=== PATIENT | male | born 1950 | race Caucasian/White ===

== ENCOUNTER 2018-10-14 22:12 | Inpatient (IN) | payer MEDICARE, SELFPAY ==
[2018-10-14 22:13] VITALS: PULSE 53; RESP 20; TEMP 36.2; O2SAT 98; BMI 34.3
[2018-10-14 22:16] VITALS: BP 192/56; PULSE 54; RESP 18; O2SAT 98
--- NOTE | 2018-10-14 22:17 | RAD_ITS ---
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 paperwork: 1 LINES/DEVICES: None. LUNGS: Radiographically clear. No consolidation, edema or effusion. No pneumothorax. MEDIASTINUM AND CARDIOVASCULAR STRUCTURES: Cardiac silhouette not enlarged. BONES AND SOFT TISSUES: Unremarkable. RAD/Chest 1 View (Portable) IMPRESSION: No radiographic evidence of acute cardiopulmonary disease. at 2256 Reported and signed by: Sandra Chong DO Electronically Signed: Sandra Chong DO at 22:55 EDT Tel , Service support ,
--- NOTE | 2018-10-14 22:17 | EKG12_ITS ---
Test Reason : CP Blood Pressure : / mmHG Vent. Rate : 047 BPM Atrial Rate : 312 BPM P-R Int : 000 ms QRS Dur : 104 ms QT Int : 456 ms P-R-T Axes : 000 088 084 degrees QTc Int : 403 ms Junctional rhythm Incomplete right bundle branch block ST elevation consider inferior injury or acute infarct ACUTE [place] / STEMI Consider right ventricular involvement in acute inferior infarct Abnormal ECG Confirmed by ARLEEN VIRAMONTES, FATOU ([id number]), editor continuity and script COLTEN MOSER ([id number]) on 10/16/2018 1:59:00 PM Referred By: Troy Turner Confirmed By:YEFRI TURNER MD
[2018-10-14] MEDS: TICAGRELOR 90 MG TABLET 180 MG PO (22:23)
[2018-10-14] MEDS: Heparin Injection (Vial) 5,000 UNIT/ML VIAL 4000 UNIT IV (22:24)
[2018-10-14] MEDS: Aspirin 81 MG TAB.CHEW 324 MG PO (22:25)
--- NOTE | 2018-10-14 22:25 | ED.VISSUMM ---
- ER Visit Summary Date of Service: 10/14/18 Chief Complaint: Chest pain History of Present Illness: The patient is a [address] Alberto Garrett and was also a patient of Dr. Hunt. He had a four-vessel bypass 8 years ago. Reports that approximately 4 hours ago he was out mowing the lawn and had the onset of a substernal chest pain. He describes this is a dull pressure. It was 5 out of 10 at worst and 3 out of 10 currently. The pain is been continuous since then. Reports that pain is worsened by exertion relieved by rest. Has been nauseated, but has not vomited. Is very diaphoretic and short of breath with this. Physical Examination: Vitals: 97.2, 192/56, 53, 20, 100% on 2 L nasal cannula. General: Well-nourished and well-developed. Head: Normocephalic atraumatic. Neck: Supple, no lymphadenopathy. No JVD. Nontender. Cardiovascular: Regular rate and rhythm. No murmurs. Respiratory: No respiratory distress. Clear to auscultation bilaterally. Abdominal: Soft, nontender, nondistended, normal bowel sounds. No guarding, rebound, or peritoneal signs. Back: Nontender. Extremities: Nontender, no edema. Skin: Normal color, no rash. Neurologic: Alert and oriented ?3. Cranial nerves II through XII are intact. Normal strength and sensation. Psych: Normal affect. Test Results: EKG is sinus bradycardia at [address] elevation leads II and III and reciprocal changes in 1 aVL. Emergency Department Course and Treatment: The patient had a prehospital EKG that did show elevation in lead 3 and reciprocal changes in 1 and avl. However, aVF and 2 were not as convincing. Because of this a prehospital STEMI was not called. However, patient had an EKG immediately upon arrival and a STEMI was called then. Patient was given aspirin by squad. He was given heparin IV and Brilinta p.o. here. Treatment Plan: Patient was discussed with Dr. Turner. He will be going to the [facility] for further evaluation treatment. Disposition: Admitted in serious condition. Impression: 1. Inferior ST elevation NC. 2. Critical care time 30 minutes. This note was generated with [employer]not[employer] software. It may contain incorrect words, spelling, and punctuation that were not noted in review of the chart prior to signing ED Disposition - Plan for ED Patient:
[2018-10-14 22:28] LABS: Absolute Lymphocyte Count 3.16 X10^3/uL (0.83-4.51); Absolute Neutrophil Count 17.4 X10^3/uL (2.0-7.7); Basophil# 0.13 X10^3/uL; Basophil% 0.6 % (0-1); Eosinophil# 0.08 X10^3/uL; Eosinophils% 0.4 % (0-5); Hematocrit 55.5 % (40-54); Lymphocyte # 3.16 X10^3/ul (4.0); Lymphocyte % 14.3 % (19-41); Mean Corp Hgb Conc 33.2 g/dL (32-36); Mean Corpuscular Hgb 32.7 pg (27.0-32.0); Mean Corpuscular Volume 98.8 fL (80-94); Mean Platelet Vol. 11.9 fl (6.2-12.0); Monocyte# 1.03 X10^3/uL; Monocyte% 4.7 % (0-10); NRBC Flagged by Analyzer 0 % (0-5); Neutrophil # 17.43 X10^3/uL (2.7-7.7); Neutrophil % 78.6 % (47-70); Platelet Count 266 K/mm3 (150-450); RBC Distribution Width CV 12.7 % (11.6-14.6); RBC Distribution Width SD 45.8 fl (35.1-43.9); Red Blood Count 5.62 M/mm3 (4.6-6.2); White Blood Count 22.2 K/mm3 (4.4-11.0)
[2018-10-14 22:33] VITALS: BP 167/61; PULSE 54; RESP 15; O2SAT 98
[2018-10-14 22:33] LABS: POSITIVE COUNT NO; POSITIVE DIFFERENTIAL NO; POSITIVE MORPHOLOGY NO
[2018-10-14 22:35] LABS: Hemoglobin 18.4 g/dL (13.0-16.5)
[2018-10-14 22:36] LABS: Prothrombin Time (Protime)PT. 13.4 SECONDS (11.7-14.9)
[2018-10-14 22:37] LABS: Partial Thromboplast Time 36.2 Seconds (24.1-36.2)
[2018-10-14 22:44] LABS: Anion Gap 12 (5-15); BUN 13 mg/dL (7-18); BUN/Creat Ratio 10.5 RATIO (10-20); Calcium,Total 9.5 mg/dL (8.5-10.1); Chloride 98 mmol/L (98-107); Creatinine, Serum 1.24 mg/dL (0.70-1.30); EST Glomerular Filtration Rate 62 mL/min (>60); Est Glom Filt Rate - Afr Amer 75 mL/min (>60); Estimated Creatinine Clearance 68.13 ml/min; Glucose 419 mg/dL (74-106); Potassium 3.8 mmol/L (3.5-5.1); Sodium Level 135 mmol/L (136-145)
[2018-10-15] VITALS (45 sets, daily range): BP systolic 96–170; BP diastolic 44–107; PULSE 53–79; RESP 12–22; TEMP 36.4–37.1; O2SAT 93–100; BMI 36.9
--- NOTE | 2018-10-15 | EKG12_ITS ---
Test Reason : POST-PCI Blood Pressure : / mmHG Vent. Rate : 058 BPM Atrial Rate : 058 BPM P-R Int : 190 ms QRS Dur : 096 ms QT Int : 440 ms P-R-T Axes : 038 066 038 degrees QTc Int : 431 ms Sinus bradycardia Otherwise normal ECG When compared with ECG of 14-OCT-2018 22:13, MANUAL COMPARISON REQUIRED, DATA IS UNCONFIRMED Confirmed by SAADIA PEREZ ([id number]), order editor KASSI HICKEY ([id number]) on 10/25/2018 3:40:29 PM Referred By: Troy Turner Confirmed By:SAADIA PEREZ
--- NOTE | 2018-10-15 00:27 | CL.I_ITS ---
Patient Name: ELIZABETH ESPINOSA Study Date: 10/14/2018 Performing: Mauricio Turner MD Ht: 74.01 inches 188 cm : 1950 Wt: 266.76 lbs 121 kg Age: 68 Gender: male BSA: 2.46 PROCEDURE(S) PERFORMED LI59-RSH/COR/LV/CABG [id number], ERIN AND/OR PTCA, ARTERY OR GRAFT, SINGLE VESSEL [id number] ROOT ANGIO WITH HEART CATH CLINICAL PROFILE AND CO-MORBIDITIES Indications: ACS <= 24 hrs Heart Failure: None Stress/Imaging Stress/Image Study Performed: No CAD Presentations: STEMI. Symptom onset Date/Time: 10/14/18 18:00:00 Time Estimated CONCLUSIONS CAD as described. Patent 1/4 bypass grafts Preserved EF. No significant or MR. Successful thrombectomy and ERIN to mRCA RECOMMENDATIONS ASA Indefinitley Brilinta for at least 12 months Routine post interventional care Follow up with primary coal gasification technician DESCRIPTION OF PROCEDURE The patient arrived to the procedure lab. The risks and benefits of the procedure as well as a full d escription of our services here and lack of surgical backup were fully explained to the patient and/o r their significant other prior to the catheterization. The Timeout was completed, verifying the deonte ect patient and procedure. The patient's procedural site was prepped and draped in the usual fashion. Local anesthetic was given subcutaneously to right groin region with Lidocaine 2%. Using a modified Seldinger technique, arterial access was obtained via the right femoral artery, a 6Fr sheath was inse rted.. Left Coronary Artery selective angiography was performed in multiple views using a 5 Fr. JL4 catheter. Right Coronary Artery selective angiography was then performed in multiple views using a 5 Fr. JR 4 catheter. Left internal mammary artery graft to the LAD selective angiography was performed in multiple views using a 6 Fr. JR 4 Guide catheter. Left Ventriculography was performed in MORENO projection using a 5 Fr. Pigtail catheter. LV to AO pullback pressures were then recorded. Asc ending (root) aorta selective angiography was then performed in single view. Ascending (root) aorta s elective angiography was then performed in single view JR 4.0 Guide catheter was inserted and engaged into the RCA. BMW Guide wire was advanced to the R CA. Arverne AP inserted Pass # 1 Arverne AP Removed Angiogram performed pre balloon dilatation. Emerge 3.50x20 Balloon catheter was inserted. PTCA balloon inflated at 6 atms for 7 secs. PTCA balloon infla chandler at 6 atms for 12 secs. Angiogram performed post balloon dilatation. Synergy 3.50x38 Drug Eluting stent was inserted. Angiogram performed post stent deployment. NC Emerge3.50x15 Balloon catheter was inserted. PTCA balloon inflated at 20 atms for 21 secs. Angiogram performed post balloon dilatation. The arterial sheath was sutured in place and capped CORONARY ANGIOGRAPHY DOMINANCE: Right Dominant LEFT HEART ASSESSMENT Left Ventricular Ejection Fraction: by LV Gram 60 % Inferior Basal Hypokinesis - Moderate LEFT MAIN: 30 % Stenosis LEFT ANTERIOR DESCENDING ARTERY: MID LAD: 70 % Stenosis CIRCUMFLEX ARTERY: Mild luminal irregularities RIGHT CORONARY ARTERY: MID RCA: 99 % Stenosis GRAFTS: TSE graft to the LAD is patent VALVE FINDINGS: No Aortic Valve Stenosis No Mitral Insufficency AORTIC ROOT: Angiographically normal, no patent bypass grafts seen in the ascending aorta during aortography. INTERVENTION INFORMATION LESION SITE: RCA (Mid) Lesion Complexity: High/C, chronic total occlusion: No, lesion at bifurcation: No, thrombus present: Yes, lesion length: 36 mm, culprit lesion: Yes, Previously treated lesion: No Pre Stenosis: 99 % Pre intervention JEFFERSON flow: 2 PROCEDURE: Thrombectomy, Drug Eluting Stent with pre and post dilatation Post Stenosis: 0 % Post intervention JEFFERSON flow: 3 COMPLICATIONS No Complications PROCEDURE MEDICATIONS Fentanyl 25 mcg IV Oxygen: 2 L/min via nasal cannula Heparin 5000 unit(s) IV 10/14/2018 23:25:21 Nitro 200 mcg IC 10/14/2018 23:35:38 Nitro 200 mcg IC 10/14/2018 23:35:38 IV Bolus: .9 NaCl 1350 ml total 10/15/2018 00:14:46 SUMMARY OF HEMODYNAMIC DATA Time AIR REST ECG 22:49:19 AO 119/57 (99) SA 23:16:17 LV 108/2, 13 23:49:41 LV 112/-2, 11 23:49:48 LVp 106/12, 16 23:50:01 AOp 96/43 (63) 23:50:06 RM AIR REST 00:15:18 Signed By Mauricio Turner MD On 10/15/2018 00:27:15 Mauricio Turner MD
--- NOTE | 2018-10-15 00:30 | NURSING ---
dr santa ordered per verbal that the integrillin drip is to infuse until seen in the am
--- NOTE | 2018-10-15 00:46 | HP.PCM_ITS ---
Problem List (1) STEMI (ST elevation myocardial infarction) Status: Acute (2) DM type 2 (diabetes mellitus, type 2) Status: Acute (3) HTN (hypertension) Status: Chronic (4) HLD (hyperlipidemia) Status: Acute (5) CAD (coronary artery disease) Status: Acute History of Present Illness Date of Admission: 10/15/18 Chief Complaint: Chest pain The patient is a 68 year old M with PMH as below who presents to the ER with chest pain. He states that it started earlier today while mowing the lawn, and he described it as a dull pressure. From the time that it started it has not resolved and he states that he had had a CABG approximately 8 years ago. He does say that the pain gets worse with exertion. In the ER he was found to have sinus bradycardia on his EKG with ST elevations in 2 3 and reciprocal changes in aVL. A STEMI alert was called and he was transferred to the [facility] where he underwent a cardiac catheterization and placement of a single drug-eluting stent in the RCA. He was transferred to the ICU after the procedure on multiple medications. He states that he used to be on a few medications which he has since discontinued for quite a while. Past Medical History Past Medical History (Chronic Problems): Chronic Problems HTN (hypertension) (Chronic) Allergies No Known Allergies Allergy (Verified 10/14/18 22:19) Home Medications: Ambulatory Orders Medication Instructions Recorded NK 10/14/18 Surgical History: appendectomy, - - CABG Smoking Status: Current every day smoker Tobacco Use: Cigarettes Alcohol: None Drugs: None - *Family History Maternal History Items: No pertinent history Paternal History Items: No pertinent history Review of Systems Constitutional: Denies: Chills, Fever, Weight Change HEENT: Denies: Head Aches, Sinus Congestion, Sinus Drainage Cardiovascular: Reports: Chest Pain, Chest Pressure. Denies: Palpitations Respiratory: Reports: Shortness of Breath. Denies: Cough, Shortness of breath at rest, Sputum production Gastrointestinal: Denies: Abdominal Pain, Nausea, Vomiting Genitourinary: Denies: Dysuria Musculoskeletal: Denies: Joint Pain, Joint Tenderness Skin: Denies: Rash, Wounds Neurological: Denies: Numbness, Tingling, Focal weakness Psychiatric: Denies: Anxiety, Depression Hematologic/ Lymphatic: Denies: Easy Bruising, Easy Bleeding VTE Information - Inpt Only VTE Present on Admission: No Patient Problems: Active and Suspected Problems STEMI (ST elevation myocardial infarction) (Acute) DM type 2 (diabetes mellitus, type 2) (Acute) HLD (hyperlipidemia) (Acute) CAD (coronary artery disease) (Acute) - Physical Exam General: Alert, Oriented x3, Cooperative, No apparent distress HEENT: Atraumatic, PERRLA, EOMI, Normocephalic Oral: Moist Mucosa Neck: Supple, No JVD Lungs: Normal air movement, No rhonchi, No rales, Diminished, Wheezes Cardiovascular: Regular rate, Regular Rhythm, Normal S1, Normal S2, No murmurs Abdomen: Soft, Non Tender, Non-Distended, No Hepato-splenomegaly Extremities: No edema, Capillary Refill Less than 3 Seconds Skin: No rashes, No breakdown Neurological: Neuro grossly intact, Sensory exam intact to light touch and pain Psych/Mental Status: Normal Affect, Appropriate Vital Signs Temp Pulse Resp BP Pulse Ox 97.2 F L 60 15 167/61 H 98 10/14/18 22:13 10/15/18 00:20 10/14/18 22:33 10/14/18 22:33 10/14/18 22:33 Oxygen Flow Rate (L/min) 2 Oxygen Delivery Method Nasal Cannula Weight: 257 lb 7.999 oz Body Mass Index (BMI) 36.9 Laboratory Tests Past 24 Hrs 10/14/18 10/14/18 10/14/18 22:15 22:15 22:15 WBC 22.2 H RBC 5.62 Hgb 18.4 H* Hct 55.5 H MCV 98.8 H MCH 32.7 H MCHC 33.2 RDW Std Deviation 45.8 H RDW Coeff of Gala 12.7 Plt Count 266 MPV 11.9 Immature Gran % (Auto) 1.400 H Neut % (Auto) 78.6 H Lymph % (Auto) 14.3 L [place] % (Auto) 4.7 Eos % (Auto) 0.4 Baso % (Auto) 0.6 Absolute Neuts (auto) 17.4 H Absolute Lymphs (auto) 3.16 Absolute Nucleated RBC 0.00 Nucleated RBC % 0 PT 13.4 INR 1.0 APTT 36.2 Sodium 135 L Potassium 3.8 Chloride 98 Carbon Dioxide 25.0 Anion Gap 12 BUN 13 Creatinine 1.24 Estim Creat Clear Calc 68.13 Est GFR (MDRD) Af Amer 75 Est GFR (MDRD) Non-Af 62 BUN/Creatinine Ratio 10.5 Glucose 419 H Calcium 9.5 Troponin I 0.080 H Assessment/Plan All Active Problems STEMI (ST elevation myocardial infarction) (Acute) DM type 2 (diabetes mellitus, type 2) (Acute) HLD (hyperlipidemia) (Acute) CAD (coronary artery disease) (Acute) 1. STEMI/CAD status post CABG/HTN/HLD -Appreciate cardiology input -Post drug-eluting stent to the RCA continue with dual antiplatelets -Given his blood pressure, will continue with metoprolol and Lipitor -We will add a lipid profile this morning labs -Check a BMP in the morning 2. DM 2 -Blood sugar on admission was 419 -We will start with long-acting insulin at 5 units nightly as well as a sliding scale insulin -Accu-Cheks AC at bedtime -We will check an A1c in the morning will likely need to be discharged on metformin 3. Tobacco abuse -Continued to smoke even after his CABG, advised cessation DVT: SCDs Code Visit Inpatient E&M: 65095 Init Hosp L3
[2018-10-15] MEDS: 0.9% NaCl Peripheral Flush Adult/Peds 10 ML IV (01:02)
[2018-10-15 01:16] LABS: Hematocrit 48.8 % (40-54); Hemoglobin 16.1 g/dL (13.0-16.5); Mean Corpuscular Hgb 32.5 pg (27.0-32.0); Mean Corpuscular Volume 98.6 fL (80-94); Mean Platelet Vol. 11.8 fl (6.2-12.0); Platelet Count 203 K/mm3 (150-450); RBC Distribution Width CV 12.8 % (11.6-14.6); RBC Distribution Width SD 46.3 fl (35.1-43.9); Red Blood Count 4.95 M/mm3 (4.6-6.2); White Blood Count 17.9 K/mm3 (4.4-11.0)
[2018-10-15 01:26] LABS: Bedside Glucose 422 mg/dL (70-110)
[2018-10-15] MEDS: 0.9% Normal Saline 1,000 ML 150 ML IV ×2 (01:32→07:41)
[2018-10-15] MEDS: Insulin Lispro 100 UNIT/ML INSULN.PEN SC ×3 (01:33→21:13)
[2018-10-15 04:30] LABS: Hematocrit 46.9 % (40-54); Mean Corp Hgb Conc 34.1 g/dL (32-36); Mean Corpuscular Hgb 33.3 pg (27.0-32.0); Mean Corpuscular Volume 97.7 fL (80-94); Mean Platelet Vol. 11.7 fl (6.2-12.0); Platelet Count 203 K/mm3 (150-450); RBC Distribution Width CV 12.8 % (11.6-14.6); RBC Distribution Width SD 45.9 fl (35.1-43.9); White Blood Count 17.2 K/mm3 (4.4-11.0)
[2018-10-15 04:44] LABS: ALB/GLOB Ratio 0.6 RATIO (0.9-2.4); AST(SGOT) 347 U/L (15-37); Alanine Aminotransfer ALT/SGPT 80 U/L (16-61); Albumin, Serum 2.8 g/dL (3.2-5.0); Alkaline Phosphatase 88 U/L (45-117); Anion Gap 9 (5-15); BUN 13 mg/dL (7-18); BUN/Creat Ratio 12.1 RATIO (10-20); Calcium,Total 8.6 mg/dL (8.5-10.1); Chloride 104 mmol/L (98-107); Cholesterol 164 mg/dL (200); Creatinine, Serum 1.07 mg/dL (0.70-1.30); EST Glomerular Filtration Rate 74 mL/min (>60); Est Glom Filt Rate - Afr Amer 89 mL/min (>60); Estimated Creatinine Clearance 70.12 ml/min; Globulin 4.4 g/dL (2.2-4.2); Glucose 340 mg/dL (74-106); High Density Lipoprotein 29 mg/dL; Potassium 4.6 mmol/L (3.5-5.1); Protein, Total 7.2 g/dL (6.4-8.2); Sodium Level 139 mmol/L (136-145); Triglycerides 208 mg/dL; Very Low Density Lipoprotein 42 mg/dL (5-40)
[2018-10-15 06:45] LABS: Bedside Glucose 290 mg/dL (70-110)
[2018-10-15 06:55] LABS: Hemoglobin A1c 11.1 % (4.2-6.3)
--- NOTE | 2018-10-15 10:00 | EKG12_ITS ---
Test Reason : Blood Pressure : / mmHG Vent. Rate : 062 BPM Atrial Rate : 062 BPM P-R Int : 188 ms QRS Dur : 098 ms QT Int : 432 ms P-R-T Axes : 075 066 052 degrees QTc Int : 438 ms Normal sinus rhythm Nonspecific ST abnormality Abnormal ECG When compared with ECG of 15-OCT-2018 02:41, MANUAL COMPARISON REQUIRED, DATA IS UNCONFIRMED Confirmed by SAADIA PEREZ ([id number]), news videotape editor KASIS HICKEY ([id number]) on 10/25/2018 3:40:44 PM Referred By: Troy Turner Confirmed By:SAADIA PEREZ
--- NOTE | 2018-10-15 10:30 | PCM.PN.BLA ---
Progress Note This is a 68 years old male patient presented to the ED because of chest pain, found to have acute ST elevation MS, underwent emergent cardiac catheterization, found to have 99% stenosis of the mid RCA, status post thrombectomy and placement of drug eluting stent as well as pre-and post dilation. This point, he denies any more chest pain. Denies shortness of breath, dizziness or lightheadedness. Patient history of CABG 8 years ago but he stopped taking his medication 3 years ago. He smokes half a pack a day. He does admit that he had history of hypertension hyperlipidemia. He is not sure if he was told that he has diabetes. In the ED, blood sugar was 419, A1c was 11.1. He is definitely has type 2 diabetes mellitus. Physical examination essentially unremarkable. He is on aspirin, Brilinta, statins, metoprolol. Cardiology on the case.
[2018-10-15] MEDS: TICAGRELOR 90 MG TABLET PO ×2 (10:33→21:12)
[2018-10-15] MEDS: Aspirin E.C. 81 MG Tablet PO (10:33)
[2018-10-15] MEDS: Metoprolol Tartrate 25 MG Tablet PO ×2 (10:33→21:12)
[2018-10-15 12:16] LABS: Bedside Glucose 272 mg/dL (70-110)
[2018-10-15] MEDS: Ondansetron 4 MG/2 ML Vial IV (12:19)
--- NOTE | 2018-10-15 15:13 | CON.PCM_ITS ---
Problem List (1) STEMI (ST elevation myocardial infarction) Status: Acute Reason for Consult Date of Consultation: 10/14/18 History of Present Illness: The patient is a 68 year old M with PMH as below who presents to the ER with chest pain. He states that it started earlier today while mowing the lawn, and he described it as a dull pressure. From the time that it started it has not resolved and he states that he had had a CABG approximately 8 years ago. He vasques s say that the pain gets worse with exertion. In the ER he was found to have sinus bradycardia on his EKG with ST elevations in 2 3 and reciprocal changes in aVL. A STEMI alert was called and he was transferred to the [facility] where he underwent a cardiac catheterization and placement of a single drug-eluting stent in the RCA. He was transferred to the ICU after the procedure on multiple medications. He states that he used to be on a few medications which he has since discontinued for quite a while. [] Review of systems: All systems reviewed. All else is negative except that in the HPI Past Medical History Allergies/Adverse Reactions: Allergies No Known Allergies Allergy (Verified 10/14/18 22:19) Home Medications: Ambulatory Orders Medication Instructions Recorded NK 10/14/18 Past Medical History (Chronic Problems): Chronic Problems Status post coronary artery bypass graft (Chronic) HTN (hypertension) (Chronic) HLD (hyperlipidemia) (Chronic) CAD (coronary artery disease) (Chronic) Surgical History: appendectomy, - - CABG - *Family History Maternal History Items: No pertinent history Paternal History Items: No pertinent history Smoking Status: Current every day smoker Tobacco Use: Cigarettes Alcohol: None Drugs: None Objective: Vital Signs Temp Pulse Resp BP Pulse Ox 98.8 F 71 15 127/44 H 94 10/15/18 12:00 10/15/18 15:00 10/15/18 15:00 10/15/18 15:00 10/15/18 15:00 Oxygen Flow Rate (L/min) 2 Oxygen Delivery Method Room Air Weight: 257 lb 7.999 oz Body Mass Index (BMI) 36.9 Intake and Output for Last 24 Hours 10/13/18 10/14/18 10/15/18 23:59 23:59 23:59 Intake Total 1986 / 1986 Output Total 1500 / 1500 Balance 487 / 487 General: Awake, Alert, Oriented x 3 HEENT: Atraumatic Oral: Moist Mucosa Neck: Supple Lungs: Clear to auscultation Cardiovascular: Normal S1, Normal S2 Abdomen: Soft Extremities: No edema Skin: No Rashes Psych/Mental Status: Appropriate 10/14/18 22:15: WBC 22.2 H, RBC 5.62, Hgb 18.4 H*, Hct 55.5 H, MCV 98.8 H, MCH 32.7 H, MCHC 33.2, Plt Count 266, MPV 11.9, Immature Gran % (Auto) 1.400 H, Neut % (Auto) 78.6 H, Lymph % (Auto) 14.3 L, [place] % (Auto) 4.7, Eos % (Auto) 0.4, Baso % (Auto) 0.6, Absolute Neuts (auto) 17.4 H, Nucleated RBC % 0 10/14/18 22:15: PT 13.4, INR 1.0, APTT 36.2 10/14/18 22:15: Sodium 135 L, Potassium 3.8, Chloride 98, Carbon Dioxide 25.0, Anion Gap 12, BUN 13, Creatinine 1.24, Est GFR (MDRD) Af Amer 75, Est GFR (MDRD) Non-Af 62, BUN/Creatinine Ratio 10.5, Glucose 419 H, Calcium 9.5, Troponin I 0.080 H 10/15/18 00:50: WBC 17.9 H, RBC 4.95, Hgb 16.1, Hct 48.8, MCV 98.6 H, MCH 32.5 H , MCHC 33.0, Plt Count 203, MPV 11.8 10/15/18 04:15: WBC 17.2 H, RBC 4.80, Hgb 16.0, Hct 46.9, MCV 97.7 H, MCH 33.3 H , MCHC 34.1, Plt Count 203, MPV 11.7 10/15/18 04:15: Sodium 139, Potassium 4.6, Chloride 104, Carbon Dioxide 26.0, Anion Gap 9, BUN 13, Creatinine 1.07, Est GFR (MDRD) Af Amer 89, Est GFR (MDRD) Non-Af 74, BUN/Creatinine Ratio 12.1, Glucose 340 H, Calcium 8.6, Total Bilirubin 0.50, Triglycerides 208 H, Cholesterol 164, LDL Cholesterol 93, VLDL Cholesterol 42 H, HDL Cholesterol 29 L 10/15/18 04:15: Hemoglobin A1c 11.1 H Rhythm: EKG: ECHO: Stress Test: Cardiac Cath: PCI: CT Surgery: Holter monitor: EPS: PPM: CXR: Chest CT Scan: Assessment/Plan 1. Inferior ST elevation NM: Patient was treated with thrombectomy and drug- eluting stent to the RCA. Prior to placing the RCA stent the importance of being compliant with medications was discussed with the patient in detail. Drug-eluting stent versus bare-metal stent was discussed. Patient preferred the drug-eluting stent and promised to be compliant with his medications. We will keep the patient on aspirin, Brilinta, metoprolol, Lipitor. Admit to the ICU for further management of his ST elevation NM. 2. Diabetes: Appreciate hospitalists' help with this.
--- NOTE | 2018-10-15 15:44 | PN.CARD_ITS ---
Subjectve: She is doing well. Denies any chest pain. Objective: Vital Signs Temp Pulse Resp BP Pulse Ox 98.8 F 71 15 127/44 H 94 10/15/18 12:00 10/15/18 15:00 10/15/18 15:00 10/15/18 15:00 10/15/18 15:00 Oxygen Flow Rate (L/min) 2 Oxygen Delivery Method Room Air Weight: 257 lb 7.999 oz Body Mass Index (BMI) 36.9 Intake and Output for Last 24 Hours 10/13/18 10/14/18 10/15/18 23:59 23:59 23:59 Intake Total 1986 / 1986 Output Total 1500 / 1500 Balance 487 / 487 General: Awake, Alert, Oriented x 3 HEENT: Atraumatic Oral: Moist Mucosa Neck: Supple Lungs: Clear to auscultation Cardiovascular: Regular Rhythm Abdomen: Soft Extremities: No edema Skin: No Rashes Psych/Mental Status: Appropriate 10/14/18 22:15: WBC 22.2 H, RBC 5.62, Hgb 18.4 H*, Hct 55.5 H, MCV 98.8 H, MCH 32.7 H, MCHC 33.2, Plt Count 266, MPV 11.9, Immature Gran % (Auto) 1.400 H, Neut % (Auto) 78.6 H, Lymph % (Auto) 14.3 L, [place] % (Auto) 4.7, Eos % (Auto) 0.4, Baso % (Auto) 0.6, Absolute Neuts (auto) 17.4 H, Nucleated RBC % 0 10/14/18 22:15: PT 13.4, INR 1.0, APTT 36.2 10/14/18 22:15: Sodium 135 L, Potassium 3.8, Chloride 98, Carbon Dioxide 25.0, Anion Gap 12, BUN 13, Creatinine 1.24, Est GFR (MDRD) Af Amer 75, Est GFR (MDRD) Non-Af 62, BUN/Creatinine Ratio 10.5, Glucose 419 H, Calcium 9.5, Troponin I 0.080 H 10/15/18 00:50: WBC 17.9 H, RBC 4.95, Hgb 16.1, Hct 48.8, MCV 98.6 H, MCH 32.5 H , MCHC 33.0, Plt Count 203, MPV 11.8 10/15/18 04:15: WBC 17.2 H, RBC 4.80, Hgb 16.0, Hct 46.9, MCV 97.7 H, MCH 33.3 H , MCHC 34.1, Plt Count 203, MPV 11.7 10/15/18 04:15: Sodium 139, Potassium 4.6, Chloride 104, Carbon Dioxide 26.0, Anion Gap 9, BUN 13, Creatinine 1.07, Est GFR (MDRD) Af Amer 89, Est GFR (MDRD) Non-Af 74, BUN/Creatinine Ratio 12.1, Glucose 340 H, Calcium 8.6, Total Bilirubin 0.50, Triglycerides 208 H, Cholesterol 164, LDL Cholesterol 93, VLDL Cholesterol 42 H, HDL Cholesterol 29 L 10/15/18 04:15: Hemoglobin A1c 11.1 H Rhythm: EKG: ECHO: Stress Test: Cardiac Cath: PCI: CT Surgery: Holter monitor: EPS: PPM: CXR: Chest CT Scan: Medical Necessity - Tobacco Use Smoking Status: Current every day smoker Tobacco Use: Cigarettes Assessment/Plan 1. Inferior ST elevation IA: Patient was treated with thrombectomy and drug- eluting stent to the RCA. We will continue aspirin, Brilinta, metoprolol, Lipitor. 2. Diabetes: Appreciate hospitalists' help with this. 3. Status post CABG: Patient has 1 out of 4 patent bypass grafts. However he does not need any further revascularization at this time. We will continue medications as above.
[2018-10-15 17:25] LABS: Bedside Glucose 264 mg/dL (70-110)
[2018-10-15] MEDS: Atorvastatin Calcium 40 MG Tablet PO (21:12)
[2018-10-15] MEDS: Nystatin Powder 15gm Bottle 1 APPLIC TOPICAL (21:21)
[2018-10-15 21:37] LABS: Bedside Glucose 258 mg/dL (70-110)
--- NOTE | 2018-10-15 22:05 | NURSING ---
Educated patient on consulting with cab starter. Patient stated, this is neglect, pure neglect of my body and my health. I believe I can manage this at home and if I can't then I will see someone.
[2018-10-16] VITALS (15 sets, daily range): BP systolic 134–150; BP diastolic 38–73; PULSE 48–64; RESP 13–23; TEMP 36.4–37.2; O2SAT 94–99; BMI 36.8
--- NOTE | 2018-10-16 | EKG12_ITS ---
Test Reason : AM EKG Blood Pressure : / mmHG Vent. Rate : 054 BPM Atrial Rate : 054 BPM P-R Int : 194 ms QRS Dur : 098 ms QT Int : 458 ms P-R-T Axes : 077 057 -36 degrees QTc Int : 434 ms Sinus bradycardia with Premature supraventricular complexes T wave abnormality, consider inferior ischemia Abnormal ECG When compared with ECG of 15-OCT-2018 13:35, MANUAL COMPARISON REQUIRED, DATA IS UNCONFIRMED Confirmed by SAADIA PEREZ ([id number]), research editor KASSI HICKEY ([id number]) on 10/25/2018 3:40:56 PM Referred By: Troy Turner Confirmed By:SAADIA PEREZ
[2018-10-16 04:12] LABS: Hemoglobin 15.4 g/dL (13.0-16.5); Mean Corp Hgb Conc 32.8 g/dL (32-36); Mean Corpuscular Volume 100.9 fL (80-94); Mean Platelet Vol. 11.6 fl (6.2-12.0); Platelet Count 199 K/mm3 (150-450); RBC Distribution Width SD 48.3 fl (35.1-43.9); Red Blood Count 4.66 M/mm3 (4.6-6.2); White Blood Count 15.1 K/mm3 (4.4-11.0)
[2018-10-16 06:56] LABS: Bedside Glucose 214 mg/dL (70-110)
[2018-10-16] MEDS: Insulin Lispro 100 UNIT/ML INSULN.PEN SC ×2 (08:23→12:22)
[2018-10-16] MEDS: TICAGRELOR 90 MG TABLET PO (08:23)
[2018-10-16] MEDS: Aspirin E.C. 81 MG Tablet PO (08:23)
[2018-10-16 08:25] LABS: Anion Gap 4 (5-15); BUN 12 mg/dL (7-18); BUN/Creat Ratio 15.1 RATIO (10-20); Calcium,Total 8.6 mg/dL (8.5-10.1); Chloride 108 mmol/L (98-107); Creatinine, Serum 0.79 mg/dL (0.70-1.30); EST Glomerular Filtration Rate 104 mL/min (>60); Est Glom Filt Rate - Afr Amer 126 mL/min (>60); Estimated Creatinine Clearance 75.03 ml/min; Glucose 215 mg/dL (74-106); Magnesium 1.9 mg/dL (1.6-2.6); Phosphorus 2.8 mg/dL (2.5-4.9); Potassium 4.3 mmol/L (3.5-5.1); Sodium Level 138 mmol/L (136-145)
--- NOTE | 2018-10-16 08:32 | CRPHASE1 ---
Patient Communication PHII Cardiac Rehab Discussed with Patient:: Yes Guide to Cardiac Rehab Given to Patient:: Yes Cardiac Rehab Facility Choice List Given to Patient:: Yes - [facility] Choice Program [facility] CR PHII:: Communication Given to CR, Refer to [facility] Refer Phase II Cardiac Rehab:: Yes Sessions:: 36 sessions - 3 days/wk, 12 weeks Phase I Charge:: Level I - Education Risk Factors/Lifestyle Smoking Status: Current every day smoker Hx Diabetes Mellitus Type 2: Yes Hx Dyslipidemia: Yes Hx Obesity: Yes Height: 5 ft 10 in Weight:: 257 lb BMI: 36.8 Risk Factor for Sedentary Lifestyle: Highest Risk Past Cardiac Illness: Coronary Artery Bypass Graft Laboratory Values: Cardiac Rehab Phase I Labs 11.1 % (4.2-6.3) H 10/15/18 04:15 Triglycerides 208 mg/dL (-199) H 10/15/18 04:15 Cholesterol 164 mg/dL (200) 10/15/18 04:15 93 mg/dL (0-130) 10/15/18 04:15 29 mg/dL (40-) L 10/15/18 04:15 Phase I Education Given On:: Artemus, Nutrition, Antiplatelet medication, CHF, Smoking cessation Issues Affecting Care:: None Knowledge of Condition:: Yes Learning Preferences: Verbal, Written, Audio/Visual, Demonstration Medical/Surgical History UT:: Yes - STEMI Angina:: Yes CAD:: Yes Diabetes Type II:: Yes Hypertension:: Yes Dyslipidemia:: Yes CABG: Yes Cardiac Rehabilitation Info Cardiac Rehabilitation Program Information: Cardiac Rehabilitation is important for patients like you who are recovering from a heart problem. Cardiac rehabilitation programs are recognized as integral to the continued care of the patient with coronary heart disease. The cardiac rehabilitation program is designed to optimize a patient's physical, psychological, and social functioning. Health critical care clinical nurse specialist work in cardiac rehabilitation programs and assist you with getting the treatments you need to get stronger and healthier - like exercise, healthy eating habits, and medications. Cardiac rehabilitation has been show to help people with heart problems live longer and have better life enjoyment than people who do not go to cardiac rehabilitation. Please contact the Cardiac Rehabilitation Program at [facility] at in two weeks if you have not heard from them.
[2018-10-16] MEDS: 0.9% NaCl Peripheral Flush Adult/Peds 10 ML IV (08:33)
[2018-10-16] MEDS: Metoprolol Tartrate 25 MG Tablet 12.5 MG PO (08:34)
--- NOTE | 2018-10-16 08:38 | CRPH1.INST_ITS ---
General Education CAD and cardiac anatomy and function:: Patient communicates acknowledgment, Needs reinforcement Explanation of diagnoses and procedures:: Patient communicates acknowledgment, Needs reinforcement Sign/Symptoms of [place]:: Patient communicates acknowledgment, Needs reinforcement Antiplatelet therapy: Patient communicates acknowledgment, Needs reinforcement Proper use of NTG-SL: Patient communicates acknowledgment, Needs reinforcement Emergency procedures and activation of EMS: Patient communicates acknowledgment, Needs reinforcement Compliance of all prescribed medications: Patient communicates acknowledgment, Needs reinforcement Smoking Patient Nicotine/Smoking Risk Factors Are:: Cigarettes Recommendations Include:: Smoking cessation strategies/Smoking packet, Second- hand smoke recommendation, Participation in a smoking cessation program Nicotine/Smoking Response Code:: Patient communicates acknowledgment, Needs reinforcement Dyslipidemia Patient Dyslipidemia Risk Factors Are:: Total Cholesterol, Triglycerides, HDL, LDL Recommendations Include:: Lipid profile provided, Reviewed NCEP/ATP guidelines, Therapeutic Lifestyle Change dietary guidelines Dyslipidemia Response Code:: Patient communicates acknowledgment, Needs reinforcement Overweight/Obesity Patient Overweight/Obesity Risk Factors Are:: Obesity - > or = 30 Recommendations Include:: Weight loss of 5-10%, Reduced calorie diet, Exercise 5-7 times/week Overweight/Obesity:: Patient communicates acknowledgment, Needs reinforcement Hypertension Recommendations Include:: BP <130/80 if diabetic, DASH dietary guidelines, Decrease/maintain normal body weight, Moderation of ETOH Hypertension:: Patient communicates acknowledgment, Needs reinforcement Heart Disease Patient Heart Disease Risk Factors Are:: Previous cardiac event Recommendations Include:: Educated family members of their risk, Educated family members of importance of prevention of heart disease Heart Disease Response Code:: Patient communicates acknowledgment, Needs reinforcement Diabetes Patient Diabetes Risk Factors Are:: Elevated blood sugars Recommendations Include:: Maintain fasting blood sugars 70-110 md/dL, Maintain HgbA1c of 6% or less, Monitor blood sugar as prescribed, Diabetic dietary guidelines, Decrease/maintain body weight Diabetes:: Patient communicates acknowledgment, Needs reinforcement Metabolic Syndrome Metabolic Syndrome Response Code:: Not instructed Sedentary Patient Sedentary Risk Factors Are:: Lack of regular exercise Recommendations Include:: Aerobic exercise 5-7 times/week for 20-30 minutes continuously, Benefits of regular exercise, Discussed home walking program, Monitored Outpatient Cardiac Rehab Sedentary Response Code:: Patient communicates acknowledgment, Needs reinforcement Stress Patient Stress Risk Factors Are:: Patient denies stress as a risk factor Recommendations Include:: Identification of stressors, and assessment of coping skills, Stress management techniques Stress Response Code:: Patient communicates acknowledgment, Needs reinforcement
[2018-10-16 08:40] LABS: Bedside Glucose 218 mg/dL (70-110)
--- NOTE | 2018-10-16 09:06 | CASEMGMT ---
RN CM Assessment Presentation: STEMI Intro role of CM and purpose of RN CM assessment to patient in room. Pt is awake, alert and able to participate in assessment. Demographics, PCP and Pharmacy verified. Pt states he does not have MCR part D and pays out of pocket for all medicaitons. Discussed Brillinta, savings card and [place] assistance program. Will give pt information for for [employer] assistance after physician signs Brillinta script part of form. DENISE Pineda updated that Dr. Turner needs to sign prescription part of form, then please notify CM to come explain form to patient prior to dc. PCP: Dr. Alberto Garrett III Specialists: Dr. Turner Preferred Pharmacy: Discussed options with pt, he is unsure which pharmacy to use. Insurance: [facility] Prescription Benefit: none. Pt may need [facility] Hospital assist on discharge. Brillinta savings card given to patient for 30 day free. If pt uses [facility] Retail pharmacy- will need to send Brillinta savings card down to pharmacy for processing. LNOK: Living Arrangements: Lives independently. Denies use of any DME or needing assistance with ADL's. Transportation: drives, drives DME: none per pt. HHC: none Patient DC goals: Home DC PLAN: Home Chester MARC RN ACM
--- NOTE | 2018-10-16 11:15 | DCINST_ITS ---
- Discharge Diagnoses Current Active Problems: Current Active and Chronic Problems Status post coronary artery bypass graft (Chronic) STEMI (ST elevation myocardial infarction) (Acute) DM type 2 (diabetes mellitus, type 2) (Acute) HTN (hypertension) (Chronic) HLD (hyperlipidemia) (Chronic) CAD (coronary artery disease) (Chronic) You will use the following diet at home:: Calorie/Carbohydrate Controlled (specify 1200, 1400, etc) - 1800 andrew., Cardiac Your food should be the consistency of: Regular Discharge Activity: Return to Normal Activity Weight Bearing Status: Weight bearing as tolerated Call your doctor if you observe: Fever of 101 or Higher, Shortness of breath, Dizziness, Fainting spells, Chest pain, Increased palpitations (irregular heartbeat) Instructions: Heart Attack, Exercising After a Heart Attack, Taking Blood Thinners After Percutaneous Coronary Intervention (PCI), Leaving the Hospital, Hyperglycemia (High Blood Sugar), Hypoglycemia (Low Blood Sugar), Using a Blood Sugar Log, How to Check Your Blood Sugar, What Is Type 2 Diabetes?, Using Injected Insulin Allergies/Adverse Reactions: Allergies No Known Allergies Allergy (Verified 10/14/18 22:19) Medications to take at Discharge Aspirin E.C. [Ecotrin] 81 mg PO DAILY@0800 #90 tablet 10/16/18 Atorvastatin Calcium [Lipitor] 40 mg PO QHS #90 tablet 10/16/18 Insulin Glargine [Lantus SoloStar Pen] 10 units SC QHS #2 pen 10/16/18 Metoprolol Tartrate [Lopressor (beta russell)] 12.5 mg PO BID #90 tablet 10/16/18 Ticagrelor [Brilinta] 90 mg PO BID #90 tablet 10/16/18 The following prescriptions were given: Ticagrelor [Brilinta] 90 mg PO BID #90 tablet Aspirin E.C. [Ecotrin] 81 mg PO DAILY@0800 #90 tablet Insulin Glargine [Lantus SoloStar Pen] 10 units SC QHS #2 pen Atorvastatin Calcium [Lipitor] 40 mg PO QHS #90 tablet Metoprolol Tartrate [Lopressor (beta russell)] 12.5 mg PO BID #90 tablet Orders to be completed after discharge: Glucometer Location: None Selected Please follow up with your Primary Care Physician in: 1-2 weeks. Test Results: Test results from this visit will be discussed in further detail at your follow- up appointment, if applicable. Please Follow Up With: Troy Turner MD When: 2-4 weeks.
[2018-10-16 11:40] LABS: Bedside Glucose 257 mg/dL (70-110)
--- NOTE | 2018-10-16 12:43 | DS.PCM_ITS ---
Discharge Date and Diagnosis - Problem List Patient Problems: Active and Suspected Problems (Last Updated 10/16/18 @ 11:51 by Lorene Antunez) STEMI (ST elevation myocardial infarction) (Acute) DM type 2 (diabetes mellitus, type 2) (Acute) Date of Admission: 10/15/18 Date of Discharge: 10/16/18 - Primary Discharge Diagnosis Active and Suspected Problems (Last Updated 10/16/18 @ 11:51 by Lorene Antunez) #1 acute inferior wall STEMI (ST elevation myocardial infarction) (Acute), status post thrombectomy and drug eluting stent to RCA. #2 newly diagnosed DM type 2 (diabetes mellitus, type 2) (Acute) - Secondary Discharge Diagnosis Chronic Problems (Last Updated 10/16/18 @ 11:51 by Lorene Antunez) Status post coronary artery bypass graft (Chronic) HTN (hypertension) (Chronic) HLD (hyperlipidemia) (Chronic) CAD (coronary artery disease) (Chronic) Hospital Course and Treatment Imaging Results: Clinical Impression(s) from Imaging Studies Chest X-Ray 10/14/18 22:17 IMPRESSION: No radiographic evidence of acute cardiopulmonary disease. at 2256 Reported and signed by: Sandra Chong DO Electronically Signed: Sandra Chong DO at 22:55 EDT Tel , Service support , Dr. Turner, cardiology. Operations: None Procedures: Cardiac catheterization Summary of Care Provided: Patient seen and examined on the day of discharge and appeared to be stable to be discharged home. He denies any more chest pain or shortness of breath. Nursing staff reported that his heart rate has been bradycardic, down to high 40s one time and has been in the 50s to 60s. Other vital signs are stable. The patient is a 68 year old M presented to the emergency room because of chest pain and he was found to have bradycardia on EKG with acute ST elevation in leads II and III and reciprocal changes in lead aVL consistent with inferior wall acute STEMI. Patient had a history of CABG 8 years ago and he stopped taking his medications and following up with his doctor around 3 years ago. He underwent emergent cardiac catheterization, underwent thrombectomy and placement of drug-eluting stent to RCA. He was transferred to ICU and started on medical treatment with aspirin, statins, metoprolol and Brilinta. On admission, patient's blood sugar was 419. Patient mentioned that he is not sure or he does not remember if he had history of diabetes. His hemoglobin A1c was 11.1. He was started on Lantus and sliding scale. He did have leukocytosis on admission which seemed to be reactive and his white blood cell count trended down. He remained afebrile throughout admission. Chest x-ray showed no acute findings. Diabetic education provided. Patient discharged home in a stable medical condition, discharged on aspirin, Brilinta, statins and metoprolol, started on insulin Lantus 10 units nightly, discharge instructions for diabetes, hyperglycemia and hypoglycemia given, recommended to check blood sugar at least once in the morning and 2 hours after each meal, prescription given for glucometer with lancets, alcohol swabs and needles, recommended sleep study as outpatient because patient complained of significant snoring and occasional apnea while asleep, recommended follow-up with PCP in 1 week, follow-up with cardiology in 2-4 weeks. Patient Problems: Active and Suspected Problems (Last Updated 10/16/18 @ 11:51 by Lorene Antunez) STEMI (ST elevation myocardial infarction) (Acute) DM type 2 (diabetes mellitus, type 2) (Acute) - Physical Exam General: Alert, Oriented x3, Cooperative, No apparent distress HEENT: Atraumatic, PERRLA, EOMI, Normocephalic Oral: Moist Mucosa, No Gingival or Mucosal Lesions/ Ulcerations Neck: Supple, No JVD, Negative Carotid Bruits, Trachea Midline, Thyroid Normal Size and Texture Lungs: Clear to auscultation, Normal air movement, No rhonchi, No wheeze, No rales, Diminished Cardiovascular: Regular rate, Regular Rhythm, Normal S1, Normal S2, No murmurs Abdomen: Bowel Sounds Present, Soft, Non Tender, Non-Distended, No Hepato- splenomegaly Extremities: No clubbing, No cyanosis, No edema Skin: No rashes, No breakdown Lymphatic: No Cervical, Supraclavicular, or Inguinal Adenopathy Neurological: Cranial nerves II-XII grossly intact, Neuro grossly intact Psych/Mental Status: Normal Affect, Appropriate, Alert and oriented to time, place, person, mood and affect Vital Signs Temp Pulse Resp BP Pulse Ox 97.6 F L 55 L 16 135/58 H 98 10/16/18 07:00 10/16/18 11:00 10/16/18 11:00 10/16/18 11:00 10/16/18 11:00 Oxygen Flow Rate (L/min) 1 Oxygen Delivery Method Room Air Weight: 257 lb Body Mass Index (BMI) 36.9 Intake and Output for Last 24 Hours 10/14/18 10/15/18 10/16/18 23:59 23:59 23:59 Intake Total 2522.5 / 2522.5 90 / 90 Output Total 2550 / 2550 400 / 400 Balance -27.5 / -27.5 -310 / -310 Laboratory Tests Past 24 Hrs 10/16/18 10/16/18 04:00 04:00 WBC 15.1 H RBC 4.66 Hgb 15.4 Hct 47.0 MCV 100.9 H MCH 33.0 H MCHC 32.8 RDW Std Deviation 48.3 H RDW Coeff of Gala 13.0 Plt Count 199 MPV 11.6 Sodium 138 Potassium 4.3 Chloride 108 H Carbon Dioxide 26.0 Anion Gap 4 L BUN 12 Creatinine 0.79 Estim Creat Clear Calc 75.03 Est GFR (MDRD) Af Amer 126 Est GFR (MDRD) Non-Af 104 BUN/Creatinine Ratio 15.1 Glucose 215 H Calcium 8.6 Phosphorus 2.8 Magnesium 1.9 POC Glucose 10/16/18 10/16/18 10/16/18 11:32 08:19 06:53 POC Glucose 257 H 218 H 214 H 10/15/18 10/15/18 21:09 16:37 POC Glucose 258 H 264 H Discharge Activity: Return to Normal Activity Weight Bearing Status: Weight bearing as tolerated Call your doctor if you observe: Fever of 101 or Higher, Shortness of breath, Dizziness, Fainting spells, Chest pain, Increased palpitations (irregular heartbeat) Home Medications: Medications to take at Discharge Aspirin E.C. [Ecotrin] 81 mg PO DAILY@0800 #90 tab 10/16/18 Atorvastatin Calcium [Lipitor] 40 mg PO QHS #90 tab 10/16/18 Insulin Glargine [Lantus SoloStar Pen] 10 units SUBCUT QHS #2 pen 10/16/18 Metoprolol Tartrate [Lopressor (beta cary)] 12.5 mg PO BID #90 tab 10/16/18 Ticagrelor [Brilinta] 90 mg PO BID #90 tab 10/16/18 Following Prescrptions Were Given to Patient: Ticagrelor [Brilinta] 90 mg PO BID #90 tab Transmission Status: Received by [address] Aspirin E.C. [Ecotrin] 81 mg PO DAILY@0800 #90 tab Transmission Status: Received by [address] Insulin Glargine [Lantus SoloStar Pen] 10 units SUBCUT QHS #2 pen Transmission Status: Received by [address] Atorvastatin Calcium [Lipitor] 40 mg PO QHS #90 tab Transmission Status: Received by [address] Metoprolol Tartrate [Lopressor (beta cary)] 12.5 mg PO BID #90 tab Transmission Status: Received by [address] Other Amb Orders: Glucometer Location: None Selected Primary Care Physician: Alberto Garrett III, MD [Primary Care Provider] - Please follow up with your Primary Care Physician in: 1-2 weeks. Please Follow Up With: Troy Turner MD When: 2-4 weeks. Patient Instructions: Using a Blood Sugar Log, Hyperglycemia (High Blood Sugar), Hypoglycemia (Low Blood Sugar), What Is Type 2 Diabetes?, How to Check Your Blood Sugar, Using Injected Insulin, Heart Attack, Exercising After a Heart Attack, Taking Blood Thinners After Percutaneous Coronary Intervention (PCI), Leaving the Hospital Disposition: Home Minutes spent on discharge:: 32 Patient Condition:: Stable Medical Necessity - Tobacco Use Smoking Status: Current every day smoker Tobacco Use: Cigarettes Meaningful Use Info Meaningful Use Diagnoses (Choose all that apply): AMI - AMI Aspirin given w/in 24hrs of arrival?: Yes ASA at discharge?: Yes Statins at discharge?: Yes Teodoro/ARB at discharge?: No Reason Teodoro/ARB not ordered:: Not indicated Beta Cary at discharge?: Yes Done w/ Acute [place] measure.: Yes Documented LVEF (%): 60 Code Visit Inpatient E&M: 45278 Disch Hosp
--- NOTE | 2018-10-16 13:00 | CASEMGMT ---
RN CM Note: [place] financial assist form filled out and given to patient. Explained areas pt needed to complete at home and requested he bring form and supporting documentation to his cardiology visit to be faxed with script to [employer] for review. Pt was given Brillinta 30 day free card and explained. Script form faxed to [facility] for physician to sign and then fax with pt's paperwork to [place] when he brings in. Chester MARC RN ACM
== END 2018-10-16 15:10 | disposition home or self-care (01) | DRG 247 ==
LOC: ED 22:19 → ICU 23:00
PROVIDERS: Admitting Provider Family Medicine; Emergency Provider Emergency Medicine; Family Provider Family Medicine; PCP Family Medicine; Referring Provider Specialist; Visit Provider Hospitalist
DX: I21.19 ST elevation (STEMI) myocardial infarction involving other coronary artery of inferior wall (principal); I25.10 Atherosclerotic heart disease of native coronary artery without angina pectoris; E11.9 Type 2 diabetes mellitus without complications; E78.5 Hyperlipidemia, unspecified; I10 Essential (primary) hypertension; F17.210 Nicotine dependence, cigarettes, uncomplicated; R00.1 Bradycardia, unspecified; Z95.1 Presence of aortocoronary bypass graft
CPT/HCPCS: 71045; 80048; 80053; 80061; 82962; 83036; 83735; 84100; 84484; 85025; 85027; 85610; 85730; 92941; 93005; 93459; 93567; 97802; 97803; 99152; 99153; 99285; 99406; J7030; J7040; Q9967; A4216; C1725; C1757; C1769; C1874; C1887; C1894; C9606; J1327; J2405

== ENCOUNTER 2023-01-11 16:28 | Inpatient (IN) | payer MEDICARE, SELFPAY ==
[2018-10-16 08:37] VITALS: BMI 36.8
[2023-01-11 16:29] VITALS: PULSE 87; RESP 16; TEMP 36.7; O2SAT 98; BMI 34.7
--- NOTE | 2023-01-11 17:14 | EDS_ITS ---
HPI HPI - GI History of Present Illness Chief Complaint: GI Bleed Informant: patient and spouse/S.O. Narrative Narrative: Patient states he has been having bloody diarrhea since yesterday. He states that started with diarrhea 1 episode that was not bloody, and it started getting bloody after that, and he has had lots of blood with diarrhea stool all day today. No melena prior to this. No abdominal pains but lots of grumbling. Occasional nausea no vomiting no fevers or chills. No known sick contacts. No travel out of the area. No suspicious food intake. His is not having any of this. He takes ticagrelor and aspirin because he had a history of cardiac stents. No anticoagulants. He had a screening colonoscopy for the first time 2 weeks ago, he states they removed over 20 polyps and he received notice that none of them were suspicious for cancer. Some of them had to be banded but he had no significant bleeding until yesterday. PFSH PFSH Medical History Atherosclerosis of coronary artery of [place] heart without angina pectoris Essential hypertension HLD (hyperlipidemia) STEMI (ST elevation myocardial infarction) Type 2 diabetes mellitus without complication Home Medications aspirin 81 mg tablet,delayed release 81 mg PO DAILY@0800 #90 tabs 10/31/18 [Rx Last Taken 01/11/23] ticagrelor 90 mg tablet 90 mg PO BID #90 tabs 10/31/18 [Rx Last Taken Unknown] metoprolol tartrate 25 mg tablet 12.5 mg (1/2 x 25 mg) PO BID #90 tabs 01/14/20 [Rx Last Taken Unknown] atorvastatin 80 mg tablet 80 mg PO QHS 01/11/23 [History Last Taken 01/10/23] clopidogrel 75 mg tablet 75 mg PO DAILY 01/11/23 [History Last Taken 01/11/23] lisinopril 20 mg-hydrochlorothiazide 12.5 mg tablet 1 tab PO DAILY 01/11/23 [History Last Taken 01/11/23] metformin 500 mg tablet 500 mg PO BID 01/11/23 [History Last Taken 01/11/23] pentoxifylline 400 mg tablet,extended release 400 mg PO Q8H improve circulation 01/11/23 [History Last Taken 01/11/23] Allergy/AdvReac Type Severity Reaction Status Date / Time No Known Allergies Allergy Verified 10/31/18 13:41 Surgical History Presence of stent in coronary artery Status post coronary artery bypass graft Social History household members: spouse Smoking Status: Current every day smoker tobacco type: pipe how long ago did patient quit smokin weeks ago quit cigarettes. Still smoking a pipe alcohol intake: never substance use type: does not use caffeine: Yes Type: coffee Number of servings: 1 ROS ROS ED Constitutional Constitutional ED: Denies chills or fever(s) Eyes Eyes: Denies change in vision or diplopia ENT ENT ED: Denies rhinorrhea or sore throat Cardiovascular Cardiovascular: Denies chest pain or palpitations Respiratory/Chest Respiratory/Chest: Denies cough or dyspnea Gastrointestinal Gastrointestinal: Reports diarrhea, hematochezia and nausea; Denies abdominal pain, melena or vomiting Genitourinary Genitourinary ED: Denies dysuria or hematuria Musculoskeletal Musculoskeletal: Denies back pain or neck pain Integumentary Denies abscess or rash Neurologic Neurologic: Denies headache(s), paresthesias or weakness Psychiatric Psychiatric: Denies anxiety or suicidal thoughts EXAM Physical Exam Const Vital Signs: 01/11/23 16:29 01/11/23 19:52 Temperature 98.1 F 98 F Temperature Source Oral Pulse Rate 87 65 Respiratory Rate 16 18 Blood Pressure 117/64 Blood Pressure Mean 81 Pulse Ox 98 99 Oxygen Delivery Method Room Air Positive well nourished, well developed and obese General Appearance ED: well developed and NAD Nutritional Appearance: obese HEENT Reports moist mucous membranes normocephalic and atraumatic Eyes PERRL and EOMs intact bilaterally Neck full ROM and supple Resp normal respiratory effort and clear to auscultation bilaterally Cardio regular rate, regular rhythm and no murmurs Rate: Negative for tachycardic GI non-tender and non-distended GI Narrative: On rectal, no tenderness, no external hemorrhoids. No pooling or active bleeding, just dark trace stool. Auscultation: normoactive bowel sounds Palpation: soft Back/Spine no CVA tenderness General Back: other FROM Extremity normal to inspection General Extremety ED: Negative for edema, pulses abnormal or tenderness General Extremity: Negative for edema or pulses abnormal Neuro oriented x3, CN's II-XII intact bilaterally and no sensory deficits noted Sensorium / Orientation: awake and alert Motor Exam: strength 5/5 throughout Skin no rashes or lesions noted and no wounds MDM MDM MDM Narrative Medical decision making narrative: Patient with a leukocytosis, diarrhea that started before became bloody, he is on antiplatelets because of stents, none of which were placed in the past year. He continued to have multiple episodes of bright red blood per rectum in the emergency department, relatively small amounts. He is hemodynamics are stable, but comparing his blood counts, he is down 5 g but he does not have a recent hemoglobin before today in the past couple years. Given this, I think admitting him is more appropriate. His fecal white blood cell smear returned positive, suggesting infection. I sent empiric bacterial panel that will not be performed tonight. I do not think emergent antibiotics are necessary but I do think admitting him because of the bleeding is indicated. Lab Data Attestation: I reviewed the patient's lab results. Labs: Laboratory Results - last 24 hr 01/11/23 17:20 WBC 16.9 H RBC 3.24 L Hgb 10.3 L Hct 32.8 L MCV 101.2 H MCH 31.8 MCHC 31.4 L RDW Std Deviation 50.2 H RDW Coeff of Gala 13.5 Plt Count 231 MPV 11.6 Immature Gran % (Auto) 1.000 H Neut % (Auto) 79.5 H Lymph % (Auto) 12.3 L [place] % (Auto) 6.6 Eos % (Auto) 0.2 Baso % (Auto) 0.4 Absolute Neuts (auto) 13.4 H Absolute Lymphs (auto) 2.08 Nucleated RBC % 0 Sodium 139 Potassium 4.4 Chloride 109 H Carbon Dioxide 26.0 Anion Gap 4 L BUN 29 H Creatinine 1.12 Estim Creat Clear Calc 63.37 Est GFR (MDRD) Af Amer 83 Est GFR (MDRD) Non-Af 69 BUN/Creatinine Ratio 25.9 H Glucose 129 H Calcium 8.2 L Total Bilirubin 0.30 AST 13 L ALT 23 Alkaline Phosphatase 44 L Total Protein 5.9 L Albumin 2.7 L Globulin 3.2 Albumin/Globulin Ratio 0.8 L Management Discussion w/another healthcare provider: Hospitalist and Director Of Acquisition Marketing (Friend - agreeable w/ above) Discharge Plan Dx/Rx/DC Orders Clinical Impression: Acute blood loss anemia, Hematochezia, Enteritis Disposition Disposition: Acute Care Hospital [facility]
[2023-01-11] MEDS: 0.9% Normal Saline (1000mL) 1,000 ML 999 ML IV (17:20)
[2023-01-11 17:47] LABS: Absolute Lymphocyte Count 2.08 X10^3/uL (0.83-4.51); Absolute Neutrophil Count 13.4 X10^3/uL (2.0-7.7); Basophil# 0.06 X10^3/uL; Basophil% 0.4 % (0-1); Eosinophil# 0.04 X10^3/uL; Eosinophils% 0.2 % (0-5); Hematocrit 32.8 % (40-54); Hemoglobin 10.3 g/dL (13.0-16.5); Lymphocyte # 2.08 X10^3/ul (0.83-4.51); Lymphocyte % 12.3 % (19-41); Mean Corp Hgb Conc 31.4 g/dL (32-36); Mean Corpuscular Hgb 31.8 pg (27.0-32.0); Mean Corpuscular Volume 101.2 fL (80-94); Mean Platelet Vol. 11.6 fl (6.2-12.0); Monocyte# 1.12 X10^3/uL; Monocyte% 6.6 % (0-10); NRBC Flagged by Analyzer 0 % (0-5); Neutrophil # 13.41 X10^3/uL (2.7-7.7); Neutrophil % 79.5 % (47-70); Platelet Count 231 K/mm3 (150-450); RBC Distribution Width CV 13.5 % (11.6-14.6); RBC Distribution Width SD 50.2 fl (35.1-43.9); Red Blood Count 3.24 M/mm3 (4.6-6.2); White Blood Count 16.9 K/mm3 (4.4-11.0)
[2023-01-11 18:11] LABS: ALB/GLOB Ratio 0.8 RATIO (0.9-2.4); AST(SGOT) 13 U/L (15-37); Alanine Aminotransfer ALT/SGPT 23 U/L (16-61); Albumin, Serum 2.7 g/dL (3.2-5.0); Alkaline Phosphatase 44 U/L (45-117); Anion Gap 4 (5-15); BUN 29 mg/dL (7-18); BUN/Creat Ratio 25.9 RATIO (10-20); Calcium,Total 8.2 mg/dL (8.5-10.1); Chloride 109 mmol/L (98-107); Creatinine, Serum 1.12 mg/dL (0.70-1.30); EST Glomerular Filtration Rate 69 mL/min (>60); Est Glom Filt Rate - Afr Amer 83 mL/min (>60); Estimated Creatinine Clearance 63.37 ml/min; Globulin 3.2 g/dL (2.2-4.2); Glucose 129 mg/dL (74-106); Potassium 4.4 mmol/L (3.5-5.1); Protein, Total 5.9 g/dL (6.4-8.2); Sodium Level 139 mmol/L (136-145)
[2023-01-11 19:52] VITALS: BP 117/64; PULSE 65; RESP 18; TEMP 36.6; O2SAT 99
--- NOTE | 2023-01-11 20:22 | PCM.HP.STD ---
HPI - General General Date of Admission: 01/11/23 Date of Service: 01/11/23 Chief Complaint: Bright red blood per rectum HPI Narrative ELIZABETH ESPINOSA, is a 72 M with a significant history of CAD status post solitary stent in 4 to 5 years ago; and who had a colonoscopy on December 27, 2022 presents emergency department with multiple loose bloody stools. His symptoms started the day before presentation. And patient reports that so far he has had about 15 bloody stools up to the time of hospitalist examination at the ED. Also he reports what looks like blood clots in his stool. He denies any nausea, or vomiting. He denies any fever. He denies eating any food out of the ordinary. Patient reports lightheadedness with taking short stairs. Reportedly on December 27, 2022 he had a colonoscopy where about 20 polyps were resected and also he has some banding of some polyps. Reportedly pathology of polyps were negative. Emergency department doctor reports positive occult stools on rectal examination and nothing untoward otherwise. [facility] Medical History (Updated 01/11/23 @ 22:[address] Lit Mosher MD) Atherosclerosis of coronary artery of [place] heart without angina pectoris Essential hypertension HLD (hyperlipidemia) STEMI (ST elevation myocardial infarction) Type 2 diabetes mellitus without complication Home Medications aspirin 81 mg tablet,delayed release 81 mg PO DAILY@0800 #90 tabs 10/31/18 [Rx Last Taken 01/11/23] ticagrelor 90 mg tablet 90 mg PO BID #90 tabs 10/31/18 [Rx Last Taken Unknown] metoprolol tartrate 25 mg tablet 12.5 mg (1/2 x 25 mg) PO BID #90 tabs 01/14/20 [Rx Last Taken 01/11/23] atorvastatin 80 mg tablet 80 mg PO QHS hld 01/11/23 [History Last Taken 01/10/23] clopidogrel 75 mg tablet 75 mg PO DAILY 01/11/23 [History Last Taken 01/11/23] lisinopril 20 mg-hydrochlorothiazide 12.5 mg tablet 1 tab PO DAILY 01/11/23 [History Last Taken 01/11/23] metformin 500 mg tablet 500 mg PO BID 01/11/23 [History Last Taken 01/11/23] pentoxifylline 400 mg tablet,extended release 400 mg PO Q8H improve circulation 01/11/23 [History Last Taken 01/11/23] Allergy/AdvReac Type Severity Reaction Status Date / Time No Known Allergies Allergy Verified 01/11/23 21:41 Family History other other (Patient denies knowledge of family medical history) Surgical History Presence of stent in coronary artery Status post coronary artery bypass graft Social History household members: spouse Smoking Status: Current every day smoker tobacco type: pipe how long ago did patient quit smokin weeks ago quit cigarettes. Still smoking a pipe alcohol intake: never substance use type: does not use caffeine: Yes Type: coffee Number of servings: 1 ROS ROS Narrative Pertinent positives and pertinent negatives as noted in HPI. All other systems were reviewed and are negative Vital Signs Vital Signs Vital Signs: 01/11/23 16:29 01/11/23 19:52 Temperature 98.1 F 98 F Temperature Source Oral Pulse Rate 87 65 Respiratory Rate 16 18 Blood Pressure 117/64 Blood Pressure Mean 81 Pulse Ox 98 99 Oxygen Delivery Method Room Air Weight Weight: 109.6 kg Body Mass Index (BMI) 34.7 Physical Exam Narrative Physical exam: General: Well-nourished, well-developed. Head: Normocephalic, atraumatic, no tenderness Eyes: Vision is grossly intact. EOMI ENT, no trauma, dry mucous membranes, no rhinorrhea Neck: Nontender, No thyromegaly. CVS: Regular rate and rhythm. S1-S2 present. No murmur, gallop or rub. Respiratory : clear to auscultation bilaterally, chest wall nontender Abdomen: Soft, nontender, nondistended, normal bowel sounds, no masses : Deferred Back: Nontender, no CVA tenderness, no midline spinal tenderness, deformities, step-offs Extremities: Nontender full range of motion, no trauma Skin: Normal color, no trauma, abrasions Neuro: Alert, oriented, cranial nerves II through XII grossly intact. Psychiatry: Normal mood. Normal affect. Not depressed. Not anxious. Results Lab / Micro Data 01/11/23 17:20 01/11/23 17:20 Labs: Laboratory Results - last 24 hr 01/11/23 17:20: WBC 16.9 H, RBC 3.24 L, Hgb 10.3 L, Hct 32.8 L, MCV 101.2 H, MCH 31.8, MCHC 31.4 L, RDW Std Deviation 50.2 H, RDW Coeff of Gala 13.5, Plt Count 231, MPV 11.6, Immature Gran % (Auto) 1.000 H, Neut % (Auto) 79.5 H, Lymph % (Auto) 12.3 L, [place] % (Auto) 6.6, Eos % (Auto) 0.2, Baso % (Auto) 0.4, Absolute Neuts (auto) 13.4 H, Absolute Lymphs (auto) 2.08, Nucleated RBC % 0, Sodium 139, Potassium 4.4, Chloride 109 H, Carbon Dioxide 26.0, Anion Gap 4 L, BUN 29 H, Creatinine 1.12, Estim Creat Clear Calc 63.37, Est GFR (MDRD) Af Amer 83, Est GFR (MDRD) Non-Af 69, BUN/Creatinine Ratio 25.9 H, Glucose 129 H, Calcium 8.2 L, Total Bilirubin 0.30, AST 13 L, ALT 23, Alkaline Phosphatase 44 L, Total Protein 5.9 L, Albumin 2.7 L, Globulin 3.2, Albumin/Globulin Ratio 0.8 L Micro: Microbiology 01/11/23 17:55 Stool Stool Lactoferrin - Final Assessment & Plan Assessment/Plan (1) Acute blood loss anemia: (2) Hematochezia: (3) Essential hypertension: (4) Type 2 diabetes mellitus without complication: QUALIFIERS: Diabetes mellitus terminal supervisor insulin use: without [facility] use Qualified Code(s): E11.9 - Type 2 diabetes mellitus without complications PLAN: Plan Acute blood loss anemia His hemoglobin presentation was 10.3. Review of labs shows last hemoglobin on file was on 10/16/2018. At that time his hemoglobin was 15.4. Also his hemoglobin on 10/15/2018 was 16.0. We will trend H&H. Unclear whether lower GI bleed or upper GI bleed especially as patient BUN is elevated. Protonix IV ordered. Hold hold aspirin Plavix and pentoxifylline. GI consult. Of note ED doctor discussed case with GI doctor. Gentle IV hydration. Review of labs showed leukocytosis. However patient has no fever. Will hold off IV antibiotics at this time. Enteropathic panel was obtained in the ED.-Patient could not give enough stool for O&P. O&P ordered at the emergency department. Unlikely C. difficile. Diabetes mellitus Blood glucose is stable Hold home metformin. Check Accu-Cheks with no correction scale insulin. Hypertension Blood pressure is stable Home blood pressure medication continued. Trend blood pressure and adjust blood pressure medications. DVT prophylaxis SCDs ordered. Time spent in the patient's overall evaluation,decision-making process, review of diagnostic data, adjustment of management, discussion with other providers, nursing and ancillary staff involved in patient's care documentation, 65 minutes. Charges/Coding Visit Charges Inpatient E&M: 96517 Init Hosp L3
[2023-01-11 21:32] VITALS: BP 123/58; PULSE 70; RESP 17; TEMP 36.7; O2SAT 100
[2023-01-11 21:33] VITALS: BMI 34.1
[2023-01-11] MEDS: 0.9% Normal Saline (1000mL) 1,000 ML 75 ML IV (21:52)
[2023-01-11] MEDS: Atorvastatin Calcium 80 MG Tablet PO (21:53)
[2023-01-11] MEDS: Pantoprazole Sodium 40 MG in 0.9% Normal Saline (100mL MB+) 100 ML 330 MG IV (21:53)
[2023-01-11 22:28] VITALS: PULSE 64
[2023-01-11 23:36] LABS: Bedside Glucose 106 mg/dL (74-106)
[2023-01-12] VITALS (8 sets, daily range): BP systolic 114–132; BP diastolic 43–55; PULSE 56–68; RESP 17–18; TEMP 36.5–36.8; O2SAT 96–99
[2023-01-12 00:27] LABS: Hematocrit 28.5 % (40-54); Hemoglobin 9.1 g/dL (13.0-16.5)
[2023-01-12 05:50] LABS: Bedside Glucose 111 mg/dL (74-106)
--- NOTE | 2023-01-12 06:00 | EKG12_ITS ---
Test Reason : PRE-OP Blood Pressure : / mmHG Vent. Rate : 062 BPM Atrial Rate : 062 BPM P-R Int : 208 ms QRS Dur : 084 ms QT Int : 432 ms P-R-T Axes : 031 044 040 degrees QTc Int : 438 ms Normal sinus rhythm Normal ECG Confirmed by KYRA VIRAMONTES, SUSAN ([id number]), state editor TULIO HENDRICKS ([id number]) on 01/18/2023 10:24:44 AM Referred By: HIPOLITO Confirmed By:SUSAN RAE MD
[2023-01-12 06:49] LABS: Absolute Lymphocyte Count 2.81 X10^3/uL (0.83-4.51); Absolute Neutrophil Count 8.1 X10^3/uL (2.0-7.7); Basophil# 0.05 X10^3/uL; Basophil% 0.4 % (0-1); Eosinophil# 0.14 X10^3/uL; Eosinophils% 1.2 % (0-5); Hematocrit 27.8 % (40-54); Lymphocyte # 2.81 X10^3/ul (0.83-4.51); Lymphocyte % 23.4 % (19-41); Mean Corp Hgb Conc 32.4 g/dL (32-36); Mean Corpuscular Hgb 32.4 pg (27.0-32.0); Monocyte# 0.85 X10^3/uL; Monocyte% 7.1 % (0-10); NRBC Flagged by Analyzer 0 % (0-5); Neutrophil % 67.3 % (47-70); Platelet Count 193 K/mm3 (150-450); RBC Distribution Width CV 13.3 % (11.6-14.6); RBC Distribution Width SD 48.8 fl (35.1-43.9); Red Blood Count 2.78 M/mm3 (4.6-6.2)
[2023-01-12] MEDS: Pantoprazole Sodium 40 MG in 0.9% Normal Saline (100mL MB+) 100 ML 330 MG IV ×2 (09:00→21:18)
[2023-01-12 09:37] LABS: Hemoglobin A1c 5.8 % (3.8-5.6)
--- NOTE | 2023-01-12 11:27 | PN.HOSP_ITS ---
Subjective Subjective Doing well, no issues overnight. No lightheadedness or dizziness Objective Data Objective Data Vital Signs: Vital Signs Temp Pulse Resp BP Pulse Ox O2 Del Method 97.7 F L 68 18 123/55 H 97 Room Air 01/12/23 08:56 01/12/23 11:00 01/12/23 08:56 01/12/23 08:56 01/12/23 08:56 01/12/23 08:56 Oxygen Delivery Method Room Air Weight: 237 lb 10.533 oz Body Mass Index (BMI) 34.1 Intake & Output: Intake and Output for Last 24 Hours 01/11/23 01/12/23 01/13/23 03:59 03:59 03:59 Intake Total 1170 / 1170 110 / 110 Output Total 900 / 900 Balance 1170 / 1170 -790 / -790 Lab / Micro Data 01/12/23 06:35 01/11/23 17:20 Labs: Laboratory Results - last 24 hr 01/11/23 17:20: WBC 16.9 H, RBC 3.24 L, Hgb 10.3 L, Hct 32.8 L, MCV 101.2 H, MCH 31.8, MCHC 31.4 L, RDW Std Deviation 50.2 H, RDW Coeff of Gala 13.5, Plt Count 231, MPV 11.6, Immature Gran % (Auto) 1.000 H, Neut % (Auto) 79.5 H, Lymph % (Auto) 12.3 L, [place] % (Auto) 6.6, Eos % (Auto) 0.2, Baso % (Auto) 0.4, Absolute Neuts (auto) 13.4 H, Absolute Lymphs (auto) 2.08, Nucleated RBC % 0, Sodium 139, Potassium 4.4, Chloride 109 H, Carbon Dioxide 26.0, Anion Gap 4 L, BUN 29 H, Creatinine 1.12, Estim Creat Clear Calc 63.37, Est GFR (MDRD) Af Amer 83, Est GFR (MDRD) Non-Af 69, BUN/Creatinine Ratio 25.9 H, Glucose 129 H, Calcium 8.2 L, Total Bilirubin 0.30, AST 13 L, ALT 23, Alkaline Phosphatase 44 L, Total Protein 5.9 L, Albumin 2.7 L, Globulin 3.2, Albumin/Globulin Ratio 0.8 L 01/11/23 23:17: POC Glucose 106 01/12/23 00:18: Hgb 9.1 L, Hct 28.5 L 01/12/23 05:28: POC Glucose 111 H 01/12/23 06:35: WBC 12.0 H, RBC 2.78 L, Hgb 9.0 L, Hct 27.8 L, MCV 100.0 H, MCH 32.4 H, MCHC 32.4, RDW Std Deviation 48.8 H, RDW Coeff of Gala 13.3, Plt Count 193, MPV 11.0, Immature Gran % (Auto) 0.600, Neut % (Auto) 67.3, Lymph % (Auto) 23.4, [place] % (Auto) 7.1, Eos % (Auto) 1.2, Baso % (Auto) 0.4, Absolute Neuts (auto) 8.1 H, Absolute Lymphs (auto) 2.81, Nucleated RBC % 0, Hemoglobin A1c 5.8 H Micro: Microbiology 01/11/23 17:55 Stool Stool Lactoferrin - Final 01/11/23 17:55 Stool Enteric Bacteriology - Final Physical Exam Narrative General: Alert, Oriented x3, Cooperative, No apparent distress HEENT: Atraumatic, PERRLA, EOMI, Normocephalic Oral: Moist Mucosa Neck: Supple, No JVD Lungs: Diminished, Normal air movement, No rhonchi, No wheeze, No rales Cardiovascular: Regular rate, Regular Rhythm, Normal S1, Normal S2, No murmurs Abdomen: Soft, Non Tender, Non-Distended, No Hepato-splenomegaly Extremities: No edema, Capillary Refill Less than 3 Seconds Skin: No rashes, No breakdown Musculoskeletal: No Tenderness to Palpation of Joints or Extremities Neurological: Cranial nerves II-XII grossly intact, Motor Exam 5/5 strength throughout, Sensory exam intact to light touch and pain Psych/Mental Status: Normal Affect, Appropriate Assessment & Plan Assessment/Plan (1) Acute blood loss anemia: (2) Hematochezia: (3) Essential hypertension: (4) Type 2 diabetes mellitus without complication: QUALIFIERS: Diabetes mellitus watermelon harvesting supervisor insulin use: without watermelon harvesting supervisor use Qualified Code(s): E11.9 - Type 2 diabetes mellitus without complications PLAN: Plan 1. Acute blood loss anemia secondary to GI bleed ? He had a colonoscopy about 2 to 3 weeks ago up in [place] and says that he had 23 polyps removed it is possible that 1 of those is bleeding as he is on aspirin and Plavix secondary to stents ? Continue with PPI, hemoglobin is down to 9 this morning ? Can hold his antiplatelets ? We will consult GI ? His leukocytosis is improving without any antibiotic interventions therefore we will monitor at this time 2. CAD status post stent/HTN/HLD ? Blood pressures are stable, will monitor and make adjustments to his medications as necessary ? We will need to clarify why he is on Brilinta as well as aspirin and Plavix, in the meantime we will hold all 3 ? Continue with statin 3. DM2 ? We will hold his metformin ? Accu-Cheks ACHS ? We will monitor and make adjustments as necessary DVT: SCDs Charges/Coding Visit Charges Inpatient E&M: 00999 Subs Hosp L2
[2023-01-12] MEDS: 0.9% Normal Saline (1000mL) 1,000 ML 75 ML IV ×2 (11:38→23:19)
[2023-01-12 12:01] LABS: Bedside Glucose 98 mg/dL (74-106)
[2023-01-12 13:08] LABS: Hematocrit 28.3 % (40-54); Hemoglobin 9.2 g/dL (13.0-16.5)
[2023-01-12] MEDS: Electrolyte Solution/Peg's 4000 ML PO (16:02)
--- NOTE | 2023-01-12 16:05 | CASEMGMT ---
DENISE HOWARD Assessment: Face to Face with pt for initial transition planning/care coordination assessment. DENISE HOWARD introduced self and role at [facility], pt voices understanding and consents to assessment. Pt is A&O x4 and answers all questions appropriately at this time. Part way through the assessment, pt's comes into the room. Care providers, pharmacy, and demographics verified/updated. Admitting Dx: ABLA PCP: Padmini Specialists:Fitter Tacker and cutter [employer] [employer] (pt. unsure of the names) [facility]erred [facility]acy[facility] Insurance:[employer] [facility] Prescription Benefit: Pt. states he is unsure LNOK: Haydee Dacosta () Living Will/HCPOA: Pt. states he is unsure if he has either of these and declines to receive info about ADs. Pt. informed he can make an appt. with [facility] to establish these if desired. Living Arrangements: Pt lives with in a 2 story home, not FFSU, 3 steps w/railing to enter, 14 steps w/railing to second floor. States prior to this admission he did have some difficulty ambulating stairs. States he was I in AD[place] and did yardwork. States he does the cooking and cleaning. Transportation: Pt drives self and denies concerns with transportation. States his also drives DME: [employer] (does not use), Declines info for medical alrt system. BP cuff, and glucometer and supplies (states he does not use this). HHC/SNF: Denies any previous HHC or SNF Pt states no concerns with going home at time of dc. states he is no currently on Brilinta as he was switched to Plavix and is also on ASA for his stent. Pt states no further concerns/needs. CM to follow. Advised pt to ask CM if any further question/concerns/needs arise, voices understanding. Pt Goal: Home Plan: Home with family support and follow up plans in place. Will follow and monitor to plan for safe discharge.
--- NOTE | 2023-01-12 17:20 | EX.PCM.CON.G ---
HPI Consult Data Date of Consult: 01/12/23 HPI Narrative Reason for Consultation: GI bleed HPI Narrative: ELIZABETH ESPINOSA, is a 72 man with a significant history of CAD status post solitary stent in 4 to 5 years ago; and who had a colonoscopy on December 27, 2022 presents emergency department with multiple loose bloody stools. His symptoms started the day before presentation. And patient reports that so far he has had about 15 bloody stools up to the time of hospitalist examination at the ED. Also he reports what looks like blood clots in his stool. He denies any nausea, or vomiting. He denies any fever. He denies eating any food out of the ordinary. Patient reports lightheadedness with taking short stairs. Reportedly on December 27, 2022 he had a colonoscopy where about 20 polyps were resected and also he has some banding of some polyps. Reportedly pathology of polyps were negative. Emergency department doctor reports positive occult stools on rectal examination and nothing untoward otherwise. [facility] Medical History Atherosclerosis of coronary artery of [place] heart without angina pectoris Essential hypertension HLD (hyperlipidemia) STEMI (ST elevation myocardial infarction) Type 2 diabetes mellitus without complication Home Medications aspirin 81 mg tablet,delayed release 81 mg PO DAILY@0800 #90 tabs 10/31/18 [Rx Last Taken 01/11/23] ticagrelor 90 mg tablet 90 mg PO BID #90 tabs 10/31/18 [Rx Last Taken Unknown] metoprolol tartrate 25 mg tablet 12.5 mg (1/2 x 25 mg) PO BID #90 tabs 01/14/20 [Rx Last Taken 01/11/23] atorvastatin 80 mg tablet 80 mg PO QHS hld 01/11/23 [History Last Taken 01/10/23] clopidogrel 75 mg tablet 75 mg PO DAILY 01/11/23 [History Last Taken 01/11/23] lisinopril 20 mg-hydrochlorothiazide 12.5 mg tablet 1 tab PO DAILY 01/11/23 [History Last Taken 01/11/23] metformin 500 mg tablet 500 mg PO BID 01/11/23 [History Last Taken 01/11/23] pentoxifylline 400 mg tablet,extended release 400 mg PO Q8H improve circulation 01/11/23 [History Last Taken 10/24/23] Allergy/AdvReac Type Severity Reaction Status Date / Time No Known Allergies Allergy Verified 01/11/23 21:41 Family History other Surgical History Presence of stent in coronary artery Status post coronary artery bypass graft Social History household members: spouse Smoking Status: Current every day smoker tobacco type: pipe how long ago did patient quit smokin weeks ago quit cigarettes. Still smoking a pipe alcohol intake: never substance use type: does not use caffeine: Yes Type: coffee Number of servings: 1 ROS ROS Narrative Pertinent positives and pertinent negatives as noted in HPI. All other systems were reviewed and are negative Physical Exam Narrative General: Alert, Oriented x3, Cooperative, No apparent distress HEENT: Atraumatic, PERRLA, EOMI, Normocephalic Oral: Moist Mucosa Neck: Supple, No JVD Lungs: Diminished, Normal air movement, No rhonchi, No wheeze, No rales Cardiovascular: Regular rate, Regular Rhythm, Normal S1, Normal S2, No murmurs Abdomen: Soft, Non Tender, Non-Distended, No Hepato-splenomegaly Extremities: No edema, Capillary Refill Less than 3 Seconds Skin: No rashes, No breakdown Musculoskeletal: No Tenderness to Palpation of Joints or Extremities Neurological: Cranial nerves II-XII grossly intact, Motor Exam 5/5 strength throughout, Sensory exam intact to light touch and pain Psych/Mental Status: Normal Affect, Appropriate Lab / Micro Data 01/12/23 12:54 01/11/23 17:20 Labs: Laboratory Results - last 24 hr 01/11/23 17:20: WBC 16.9 H, RBC 3.24 L, Hgb 10.3 L, Hct 32.8 L, MCV 101.2 H, MCH 31.8, MCHC 31.4 L, RDW Std Deviation 50.2 H, RDW Coeff of Gala 13.5, Plt Count 231, MPV 11.6, Immature Gran % (Auto) 1.000 H, Neut % (Auto) 79.5 H, Lymph % (Auto) 12.3 L, [place] % (Auto) 6.6, Eos % (Auto) 0.2, Baso % (Auto) 0.4, Absolute Neuts (auto) 13.4 H, Absolute Lymphs (auto) 2.08, Nucleated RBC % 0, Sodium 139, Potassium 4.4, Chloride 109 H, Carbon Dioxide 26.0, Anion Gap 4 L, BUN 29 H, Creatinine 1.12, Estim Creat Clear Calc 63.37, Est GFR (MDRD) Af Amer 83, Est GFR (MDRD) Non-Af 69, BUN/Creatinine Ratio 25.9 H, Glucose 129 H, Calcium 8.2 L, Total Bilirubin 0.30, AST 13 L, ALT 23, Alkaline Phosphatase 44 L, Total Protein 5.9 L, Albumin 2.7 L, Globulin 3.2, Albumin/Globulin Ratio 0.8 L 01/11/23 23:17: POC Glucose 106 01/12/23 00:18: Hgb 9.1 L, Hct 28.5 L 01/12/23 05:28: POC Glucose 111 H 01/12/23 06:35: WBC 12.0 H, RBC 2.78 L, Hgb 9.0 L, Hct 27.8 L, MCV 100.0 H, MCH 32.4 H, MCHC 32.4, RDW Std Deviation 48.8 H, RDW Coeff of Gala 13.3, Plt Count 193, MPV 11.0, Immature Gran % (Auto) 0.600, Neut % (Auto) 67.3, Lymph % (Auto) 23.4, [place] % (Auto) 7.1, Eos % (Auto) 1.2, Baso % (Auto) 0.4, Absolute Neuts (auto) 8.1 H, Absolute Lymphs (auto) 2.81, Nucleated RBC % 0, Hemoglobin A1c 5.8 H 01/12/23 11:37: POC Glucose 98 01/12/23 12:54: Hgb 9.2 L, Hct 28.3 L Micro: Microbiology 01/11/23 17:55 Stool Stool Lactoferrin - Final 01/11/23 17:55 Stool Enteric Bacteriology - Final Assessment & Plan Assessment/Plan (1) Acute blood loss anemia: (2) Hematochezia: (3) Essential hypertension: (4) Type 2 diabetes mellitus without complication: QUALIFIERS: Diabetes mellitus terminal operations supervisor insulin use: without terminal operations supervisor use Qualified Code(s): E11.9 - Type 2 diabetes mellitus without complications PLAN: Plan Acute blood loss anemia His hemoglobin presentation was 10.3. Review of labs shows last hemoglobin on file was on 10/16/2018. At that time his hemoglobin was 15.4. Also his hemoglobin on 10/15/2018 was 16.0. We will trend H&H. Unclear whether lower GI bleed or upper GI bleed especially as patient BUN is elevated. Protonix IV ordered. Hold hold aspirin Plavix and pentoxifylline. We will order an upper and lower endoscopy. Charges/Coding Visit Charges Inpatient E&M: 35974 Init Hosp L3
[2023-01-12 18:00] LABS: Bedside Glucose 98 mg/dL (74-106)
[2023-01-12 18:45] LABS: Hematocrit 31.2 % (40-54); Hemoglobin 10.1 g/dL (13.0-16.5)
[2023-01-12] MEDS: Atorvastatin Calcium 80 MG Tablet PO (21:18)
[2023-01-13] VITALS (14 sets, daily range): BP systolic 124–144; BP diastolic 46–96; PULSE 68–79; RESP 16–18; TEMP 36.4–37.2; O2SAT 95–98
[2023-01-13 00:54] LABS: Bedside Glucose 97 mg/dL (74-106)
[2023-01-13 06:00] LABS: Absolute Lymphocyte Count 2.17 X10^3/uL (0.83-4.51); Absolute Neutrophil Count 5.1 X10^3/uL (2.0-7.7); Basophil# 0.03 X10^3/uL; Basophil% 0.4 % (0-1); Eosinophil# 0.12 X10^3/uL; Eosinophils% 1.5 % (0-5); Hematocrit 25.5 % (40-54); Hemoglobin 8.4 g/dL (13.0-16.5); Lymphocyte # 2.17 X10^3/ul (0.83-4.51); Lymphocyte % 26.8 % (19-41); Mean Corp Hgb Conc 32.9 g/dL (32-36); Mean Corpuscular Hgb 32.6 pg (27.0-32.0); Mean Corpuscular Volume 98.8 fL (80-94); Mean Platelet Vol. 11.4 fl (6.2-12.0); Monocyte# 0.61 X10^3/uL; Monocyte% 7.5 % (0-10); NRBC Flagged by Analyzer 0 % (0-5); Neutrophil # 5.14 X10^3/uL (2.7-7.7); Neutrophil % 63.3 % (47-70); Platelet Count 164 K/mm3 (150-450); RBC Distribution Width CV 13.3 % (11.6-14.6); RBC Distribution Width SD 47.1 fl (35.1-43.9); Red Blood Count 2.58 M/mm3 (4.6-6.2); White Blood Count 8.1 K/mm3 (4.4-11.0)
[2023-01-13 06:04] LABS: Bedside Glucose 112 mg/dL (74-106)
[2023-01-13 06:39] LABS: Anion Gap 4 (5-15); BUN 14 mg/dL (7-18); BUN/Creat Ratio 16.9 RATIO (10-20); Calcium,Total 7.8 mg/dL (8.5-10.1); Chloride 110 mmol/L (98-107); Creatinine, Serum 0.83 mg/dL (0.70-1.30); EST Glomerular Filtration Rate 98 mL/min (>60); Est Glom Filt Rate - Afr Amer 118 mL/min (>60); Estimated Creatinine Clearance 85.51 ml/min; Glucose 122 mg/dL (74-106); Potassium 3.8 mmol/L (3.5-5.1); Sodium Level 140 mmol/L (136-145)
[2023-01-13] MEDS: 0.9% Normal Saline (1000mL) 1,000 ML 15 ML IV (06:49)
--- NOTE | 2023-01-13 07:00 | PN.GI_ITS ---
Subjective Subjective Patient is doing well. He underwent an colonoscopy yesterday for post polypectomy bleed. His hemoglobin had decreased down to 8 but on repeat it went up to 8.7. He is not having any more lower GI bleeding. Objective Data Objective Data Vital Signs: Vital Signs Temp Pulse Resp BP Pulse Ox O2 Del Method 98.8 F 69 18 155/57 H 97 Room Air 01/14/23 09:11 01/14/23 09:11 01/14/23 09:11 01/14/23 09:11 01/14/23 09:11 01/14/23 09:11 Oxygen Delivery Method Room Air Weight: 237 lb 10.533 oz Body Mass Index (BMI) 34.1 Intake & Output: Intake and Output for Last 24 Hours 01/12/23 01/13/23 01/14/23 23:59 23:59 23:59 Intake Total 2071.25 / 2071.25 2729.00 / 2729.00 590 / 590 Output Total 1900 / 1900 Balance 171.25 / 171.25 2729.00 / 2729.00 590 / 590 Lab / Micro Data 01/14/23 12:15 01/14/23 07:15 Labs: Laboratory Results - last 24 hr 01/13/23 22:30: POC Glucose 157 H 01/14/23 05:26: POC Glucose 131 H 01/14/23 07:15: WBC 6.6, RBC 2.47 L, Hgb 8.0 L, Hct 24.9 L, MCV 100.8 H, MCH 32.4 H, MCHC 32.1, RDW Std Deviation 47.9 H, RDW Coeff of Gala 13.3, Plt Count 162, MPV 11.3, Immature Gran % (Auto) 0.500, Neut % (Auto) 66.9, Lymph % (Auto) 22.7, [place] % (Auto) 8.2, Eos % (Auto) 1.4, Baso % (Auto) 0.3, Absolute Neuts (auto) 4.4, Absolute Lymphs (auto) 1.50, Nucleated RBC % 0, Sodium 140, Potassium 3.9, Chloride 110 H, Carbon Dioxide 26.0, Anion Gap 4 L, BUN 12, Creatinine 0.79, Estim Creat Clear Calc 70.97, Est GFR (MDRD) Af Amer 124, Est GFR (MDRD) Non-Af 102, BUN/Creatinine Ratio 15.1, Glucose 133 H, Calcium 7.6 L 01/14/23 12:15: Hgb 8.7 L Micro: Microbiology 01/11/23 17:55 Stool Stool Lactoferrin - Final 01/11/23 17:55 Stool Enteric Bacteriology - Final Physical Exam Narrative General: Alert, Oriented x3, Cooperative, No apparent distress HEENT: Atraumatic, PERRLA, EOMI, Normocephalic Oral: Moist Mucosa Neck: Supple, No JVD Lungs: Diminished, Normal air movement, No rhonchi, No wheeze, No rales Cardiovascular: Regular rate, Regular Rhythm, Normal S1, Normal S2, No murmurs Abdomen: Soft, Non Tender, Non-Distended, No Hepato-splenomegaly Extremities: No edema, Capillary Refill Less than 3 Seconds Skin: No rashes, No breakdown Musculoskeletal: No Tenderness to Palpation of Joints or Extremities Neurological: Cranial nerves II-XII grossly intact, Motor Exam 5/5 strength throughout, Sensory exam intact to light touch and pain Psych/Mental Status: Normal Affect, Appropriate Assessment & Plan Assessment/Plan (1) Acute blood loss anemia: (2) Hematochezia: (3) Essential hypertension: (4) Type 2 diabetes mellitus without complication: QUALIFIERS: Diabetes mellitus detention insulin use: without intermediate project manager use Qualified Code(s): E11.9 - Type 2 diabetes mellitus without complications PLAN: Plan 1. Acute blood loss anemia secondary to GI bleed ? He had a colonoscopy about 2 to 3 weeks ago up in [place] and says that he had 23 polyps removed it is possible that 1 of those is bleeding as he is on aspirin and Plavix secondary to stents ? Continue with PPI, hemoglobin is down to 8.4 this morning ? Can hold his antiplatelets ? Plan for colonoscopy today, given the drop in his hemoglobin we will repeat an H&H this afternoon and then tomorrow morning ? His leukocytosis is improving without any antibiotic interventions therefore we will monitor at this time 2. CAD status post stent/HTN/HLD ? Blood pressures are stable, will monitor and make adjustments to his medications as necessary ? We will need to clarify why he is on Brilinta as well as aspirin and Plavix, in the meantime we will hold all 3 ? Continue with statin 3. DM2 ? We will hold his metformin ? Accu-Cheks ACHS ? We will monitor and make adjustments as necessary DVT: SCDs Charges/Coding Visit Charges Inpatient E&M: 44471 Subs Hosp L3
--- NOTE | 2023-01-13 09:00 | OP.COLON_ITS ---
Patient Name: Walter Dacosta Procedure Date: 01/13/2023 7:25 AM Date of : 1950 Age: 72 Procedure: Colonoscopy Indications: Hematochezia Providers: Hector Gorman DO Medicines: Monitored Anesthesia Care Patient Profile: This is a 72 year old male. Refer to note in patient chart for documentation of history and physical. Last Colonoscopy: 2 weeks ago. Complications: No immediate complications. Procedure: Pre-Anesthesia Assessment: - Prior to the procedure, a History and Physical was performed, and patient medications and allergies were reviewed. The patient is competent. The risks and benefits of the procedure and the sedation options and risks were discussed with the patient. All questions were answered and informed consent was obtained. Patient identification and proposed procedure were verified by the physician in the pre-procedure area. Mental Status Examination: alert and oriented. Airway Examination: normal oropharyngeal airway and neck mobility. Respiratory Examination: clear to auscultation. CV Examination: normal. Prophylactic Antibiotics: The patient does not require prophylactic antibiotics. Prior Anticoagulants: The patient has taken no anticoagulant or antiplatelet agents except for NSAID medication. ASA Grade Assessment: II - A patient with mild systemic disease. After reviewing the risks and benefits, the patient was deemed in satisfactory condition to undergo the procedure. The anesthesia plan was to use monitored anesthesia care (MAC). Immediately prior to administration of medications, the patient was re-assessed for adequacy to receive sedatives. The heart rate, respiratory rate, oxygen saturations, blood pressure, adequacy of pulmonary ventilation, and response to care were monitored throughout the procedure. The physical status of the patient was re-assessed after the procedure. After I obtained informed consent, the scope was passed under direct vision. Throughout the procedure, the patient's blood pressure, pulse, and oxygen saturations were monitored continuously. The colonoscope was introduced through the anus and advanced to the cecum, identified by appendiceal orifice and ileocecal valve. The colonoscopy was performed without difficulty. The patient tolerated the procedure well. The quality of the bowel preparation was fair. Scope In: 7:33:29 AM Scope Withdrawal Time 0 hours 10 minutes 53 seconds Scope Out: 7:51:27 AM Total Procedure Duration Time 0 hours 17 minutes 58 seconds Findings: The perianal and digital rectal examinations were normal. Multiple sessile, non-bleeding polyps were found in the sigmoid colon, descending colon, transverse colon, hepatic flexure, ascending colon and cecum. The polyps were 1 to 2 mm in size. A single (solitary) seven mm ulcer was found at the hepatic flexure. Oozing was present. Stigmata of recent bleeding were present. Area was successfully injected with 5 mL of a 0.1 mg/mL solution of epinephrine for drug delivery. Coagulation for hemostasis using heater probe was successful. Estimated blood loss was minimal. Stool was found in the recto-sigmoid colon, in the sigmoid colon, in the descending colon, in the transverse colon and in the cecum. Multiple small and large-mouthed diverticula were found in the recto-sigmoid colon, sigmoid colon and descending colon. Impression: - Preparation of the colon was fair. - Multiple 1 to 2 mm, non-bleeding polyps in the sigmoid colon, in the descending colon, in the transverse colon, at the hepatic flexure, in the ascending colon and in the cecum. - A single (solitary) ulcer at the hepatic flexure. Injected. Treated with a heater probe. - Stool in the recto-sigmoid colon, in the sigmoid colon, in the descending colon, in the transverse colon and in the cecum. - Diverticulosis in the recto-sigmoid colon, in the sigmoid colon and in the descending colon. - No specimens collected. Recommendation: - Return patient [facility]. - Resume previous diet. - Continue present medications. - Repeat colonoscopy in 6 months because the bowel preparation was suboptimal. Procedure Code(s): --- Professional --- 83074, Colonoscopy, flexible; with control of bleeding, any method 41196, 59, Colonoscopy, flexible; with directed submucosal injection(s), any substance CPT copyright 2021 [employer]. All rights reserved. The codes documented in this report are preliminary and upon dynamiter review may be revised to meet current compliance requirements. Hector Gorman DO 01/13/2023 8:59:52 AM This report has been signed electronically. Number of Addenda: 0 Note Initiated On: 01/13/2023 7:25 AM
--- NOTE | 2023-01-13 09:00 | OP.CCLET_ITS ---
01/13/2023 No Primary Care Physician Re : Colonoscopy procedure for Walter Dacosta [facility] Physician This procedure was performed on December. My impressions and recommendations are as follows: Impressions : - Preparation of the colon was fair. - Multiple 1 to 2 mm, non-bleeding polyps in the sigmoid colon, in the descending colon, in the transverse colon, at the hepatic flexure, in the ascending colon and in the cecum. - A single (solitary) ulcer at the hepatic flexure. Injected. Treated with a heater probe. - Stool in the recto-sigmoid colon, in the sigmoid colon, in the descending colon, in the transverse colon and in the cecum. - Diverticulosis in the recto-sigmoid colon, in the sigmoid colon and in the descending colon. - No specimens collected. Recommendations : - Return patient to [facility] for [facility] care. - Resume previous diet. - Continue present medications. - Repeat colonoscopy in 6 months because the bowel preparation was suboptimal. My findings are described in the full procedure note, which is enclosed. If I can be of further assistance, please feel free to contact me at . Sincerely, Hector Gorman, 01/13/2023 8:59:52 AM This report has been signed electronically.
[2023-01-13] MEDS: Pantoprazole Sodium 40 MG in 0.9% Normal Saline (100mL MB+) 100 ML 330 MG IV ×2 (11:05→22:32)
--- NOTE | 2023-01-13 11:17 | PN.HOSP_ITS ---
Subjective Subjective Doing well, no issues overnight. Hemoglobin did drop to 8.4 Objective Data Objective Data Vital Signs: Vital Signs Temp Pulse Resp BP Pulse Ox O2 Del Method 98.3 F 72 18 134/46 H 98 Room Air 01/13/23 08:39 01/13/23 08:39 01/13/23 08:41 01/13/23 08:39 01/13/23 08:39 01/13/23 08:41 Oxygen Delivery Method Room Air Weight: 237 lb 10.533 oz Body Mass Index (BMI) 34.1 Intake & Output: Intake and Output for Last 24 Hours 01/12/23 01/13/23 01/14/23 03:59 03:59 03:59 Intake Total 1170 / 1170 2071.25 / 2071.25 Output Total 1900 / 1900 Balance 1170 / 1170 171.25 / 171.25 Lab / Micro Data 01/13/23 05:25 01/13/23 05:25 Labs: Laboratory Results - last 24 hr 01/12/23 11:37: POC Glucose 98 01/12/23 12:54: Hgb 9.2 L, Hct 28.3 L 01/12/23 17:39: POC Glucose 98 01/12/23 18:19: Hgb 10.1 L, Hct 31.2 L 01/13/23 00:37: POC Glucose 97 01/13/23 05:25: WBC 8.1, RBC 2.58 L, Hgb 8.4 L, Hct 25.5 L, MCV 98.8 H, MCH 32.6 H, MCHC 32.9, RDW Std Deviation 47.1 H, RDW Coeff of Gala 13.3, Plt Count 164, MPV 11.4, Immature Gran % (Auto) 0.500, Neut % (Auto) 63.3, Lymph % (Auto) 26.8, [place] % (Auto) 7.5, Eos % (Auto) 1.5, Baso % (Auto) 0.4, Absolute Neuts (auto) 5.1, Absolute Lymphs (auto) 2.17, Nucleated RBC % 0, Sodium 140, Potassium 3.8, Chloride 110 H, Carbon Dioxide 26.0, Anion Gap 4 L, BUN 14, Creatinine 0.83, Estim Creat Clear Calc 85.51, Est GFR (MDRD) Af Amer 118, Est GFR (MDRD) Non-Af 98, BUN/Creatinine Ratio 16.9, Glucose 122 H, Calcium 7.8 L 01/13/23 05:46: POC Glucose 112 H Micro: Microbiology 01/11/23 17:55 Stool Stool Lactoferrin - Final 01/11/23 17:55 Stool Enteric Bacteriology - Final Physical Exam Narrative General: Alert, Oriented x3, Cooperative, No apparent distress HEENT: Atraumatic, PERRLA, EOMI, Normocephalic Oral: Moist Mucosa Neck: Supple, No JVD Lungs: Diminished, Normal air movement, No rhonchi, No wheeze, No rales Cardiovascular: Regular rate, Regular Rhythm, Normal S1, Normal S2, No murmurs Abdomen: Soft, Non Tender, Non-Distended, No Hepato-splenomegaly Extremities: No edema, Capillary Refill Less than 3 Seconds Skin: No rashes, No breakdown Musculoskeletal: No Tenderness to Palpation of Joints or Extremities Neurological: Cranial nerves II-XII grossly intact, Motor Exam 5/5 strength throughout, Sensory exam intact to light touch and pain Psych/Mental Status: Normal Affect, Appropriate Assessment & Plan Assessment/Plan (1) Acute blood loss anemia: (2) Hematochezia: (3) Essential hypertension: (4) Type 2 diabetes mellitus without complication: QUALIFIERS: Diabetes mellitus nursing home insulin use: without 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 Acute blood loss anemia secondary to GI bleed ? He had a colonoscopy about 2 to 3 weeks ago up in [place] and says that he had 23 polyps removed it is possible that 1 of those is bleeding as he is on aspirin and Plavix secondary to stents ? Continue with PPI, hemoglobin is down to 8.4 this morning ? Can hold his antiplatelets ? Plan for colonoscopy today, given the drop in his hemoglobin we will repeat an H&H this afternoon and then tomorrow morning ? His leukocytosis is improving without any antibiotic interventions therefore we will monitor at this time 2. CAD status post stent/HTN/HLD ? Blood pressures are stable, will monitor and make adjustments to his me dications as necessary ? We will need to clarify why he is on Brilinta as well as aspirin and Plavix, in the meantime we will hold all 3 ? Continue with statin 3. DM2 ? We will hold his metformin ? Accu-Cheks ACHS ? We will monitor and make adjustments as necessary DVT: SCDs Charges/Coding Visit Charges Inpatient E&M: 19292 Subs Hosp L2
[2023-01-13 12:41] LABS: Hematocrit 27.9 % (40-54); Hemoglobin 8.9 g/dL (13.0-16.5)
[2023-01-13 16:17] LABS: Bedside Glucose 246 mg/dL (74-106)
[2023-01-13 23:34] LABS: Bedside Glucose 157 mg/dL (74-106)
[2023-01-13] MEDS: Atorvastatin Calcium 80 MG Tablet PO (23:43)
[2023-01-14 04:45] VITALS: BP 154/66; PULSE 66; RESP 18; TEMP 36.7; O2SAT 96
[2023-01-14 06:48] LABS: Bedside Glucose 131 mg/dL (74-106)
[2023-01-14 07:47] LABS: Absolute Neutrophil Count 4.4 X10^3/uL (2.0-7.7); Basophil# 0.02 X10^3/uL; Basophil% 0.3 % (0-1); Eosinophil# 0.09 X10^3/uL; Eosinophils% 1.4 % (0-5); Hematocrit 24.9 % (40-54); Lymphocyte % 22.7 % (19-41); Mean Corp Hgb Conc 32.1 g/dL (32-36); Mean Corpuscular Hgb 32.4 pg (27.0-32.0); Mean Corpuscular Volume 100.8 fL (80-94); Mean Platelet Vol. 11.3 fl (6.2-12.0); Monocyte# 0.54 X10^3/uL; Monocyte% 8.2 % (0-10); NRBC Flagged by Analyzer 0 % (0-5); Neutrophil # 4.42 X10^3/uL (2.7-7.7); Neutrophil % 66.9 % (47-70); Platelet Count 162 K/mm3 (150-450); RBC Distribution Width CV 13.3 % (11.6-14.6); RBC Distribution Width SD 47.9 fl (35.1-43.9); Red Blood Count 2.47 M/mm3 (4.6-6.2); White Blood Count 6.6 K/mm3 (4.4-11.0)
[2023-01-14 08:35] VITALS: O2SAT 93
[2023-01-14 08:35] LABS: Anion Gap 4 (5-15); BUN 12 mg/dL (7-18); BUN/Creat Ratio 15.1 RATIO (10-20); Calcium,Total 7.6 mg/dL (8.5-10.1); Chloride 110 mmol/L (98-107); Creatinine, Serum 0.79 mg/dL (0.70-1.30); EST Glomerular Filtration Rate 102 mL/min (>60); Est Glom Filt Rate - Afr Amer 124 mL/min (>60); Estimated Creatinine Clearance 70.97 ml/min; Glucose 133 mg/dL (74-106); Potassium 3.9 mmol/L (3.5-5.1); Sodium Level 140 mmol/L (136-145)
[2023-01-14 09:11] VITALS: BP 155/57; PULSE 69; RESP 18; TEMP 37.1; O2SAT 97
[2023-01-14] MEDS: Pantoprazole Sodium 40 MG in 0.9% Normal Saline (100mL MB+) 100 ML 330 MG IV (09:14)
[2023-01-14] MEDS: terbinafine HCL 250 MG TABLET PO (09:18)
[2023-01-14 12:25] LABS: Hemoglobin 8.7 g/dL (13.0-16.5)
--- NOTE | 2023-01-14 12:52 | DCINST_ITS ---
Discharge Instructions Diet Discharge Diet: Low fat / Low cholesterol and Carb Control Diet Activity Discharge Activity: Return to Normal Activity Dressing / Incision Call your doctor if you observe: Fever of 101 or Higher, Shortness of breath, Dizziness, Fainting spells, Swelling in the ankles, Chest pain and Increased palpitations (irregular heartbeat) Follow Up Care Test Results: Test results from this visit will be discussed in further detail at your follow- up appointment, if applicable. Discharge Plan Admission Admit Date/Time: 01/11/23 20:15 Attending Provider: Otilio Paiz Primary Care Provider: Miracle Rooney,Mel Primary Consulting Providers: Friend,Hector; Lit Mosher Discharge Orders/Prescriptions Prescriptions: Continued atorvastatin 80 mg tablet 80 mg PO QHS Patient Comments: TAKE 1 TABLET BY MOUTH ONCE DAILY. FOR CHOLESTEROL. pentoxifylline 400 mg tablet extended release 400 mg PO Q8H Patient Comments: pt does not always take these. difficulty swallowing. Rx Instructions: TAKE 1 TABLET BY MOUTH THREE TIMES DAILY WITH MEALS lisinopril-hydrochlorothiazide 20-12.5 mg tablet 1 tab PO DAILY Rx Instructions: TAKE 1 TABLET BY MOUTH EVERY DAY IN THE MORNING metformin 500 mg tablet 500 mg PO BID Patient Comments: excessive supply of pills at home, so he hasn't needed refills Rx Instructions: TAKE 1 TABLET BY MOUTH TWICE A DAY WITH MEALS terbinafine HCl 250 mg tablet 250 mg PO DAILY Patient Comments: TAKE 1 TABLET BY MOUTH EVERY DAY metoprolol tartrate 25 mg tablet 12.5 mg PO BID Qty: 90 3RF Held aspirin 81 mg tablet,delayed release (DR/EC) 81 mg PO DAILY@0800 Qty: 90 3RF Hold Instructions: Resume on 01/18/23. clopidogrel 75 mg tablet 75 mg PO DAILY Hold Instructions: Resume on 01/18/23. Patient Comments: TAKE 1 TABLET BY MOUTH EVERY DAY Discontinued ticagrelor 90 mg tablet 90 mg PO BID Qty: 90 3RF Referrals / Follow Up: Care Physician,No Primary [Primary Care Provider] - Disposition Disposition (needs filled in before D/C Order can be placed): Home, Self Care
--- NOTE | 2023-01-14 13:35 | CASEMGMT ---
DENISE CM into pt room, pt sitting up in bed. Pt states he ambulates on own without device. He feels safe to go home. He denies any dc needs. Pt anxious for dc and states the sooner the better.
--- NOTE | 2023-01-14 13:40 | DS.PCM_ITS ---
Providers Date of Admission: 01/11/23 Primary Care Physician: Mel Primary Care Phys Consultations 01/11/23 21:27 Consult: Gastroenterology Routine Consulting Provider: Hector Gorman Reason for Consult: ABLA EMERGENT Consult: No MD Notified: Yes Date Notified: 01/11/23 Time Notified: 20:23 Method of Notification: ED Physician Initiated Reason For Visit: ABLA Diagnosis Discharge Diagnosis (1) Acute blood loss anemia: Status: Acute Code(s): D62 - Acute posthemorrhagic anemia (2) Hematochezia: Status: Acute Code(s): K92.1 - Melena (3) Essential hypertension: Status: Chronic Code(s): I10 - Essential (primary) hypertension (4) Type 2 diabetes mellitus without complication: Status: Acute Code(s): E11.9 - Type 2 diabetes mellitus without complications Qualifiers: Diabetes mellitus 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 Acute blood loss anemia secondary to GI bleed ? He had a colonoscopy about 2 to 3 weeks ago up in [place] and says that he had 23 polyps removed it is possible that 1 of those is bleeding as he is on aspirin and Plavix secondary to stents ? Continue with PPI, hemoglobin is down to 8.4 this morning ? Can hold his antiplatelets ? Plan for colonoscopy today, given the drop in his hemoglobin we will repeat an H&H this afternoon and then tomorrow morning ? His leukocytosis is improving without any antibiotic interventions therefore we will monitor at this time 2. CAD status post stent/HTN/HLD ? Blood pressures are stable, will monitor and make adjustments to his medications as necessary ? We will need to clarify why he is on Brilinta as well as aspirin and Plavix, in the meantime we will hold all 3 ? Continue with statin 3. DM2 ? We will hold his metformin ? Accu-Cheks ACHS ? We will monitor and make adjustments as necessary DVT: SCDs Medications at Discharge Home Medications aspirin 81 mg tablet,delayed release 81 mg PO DAILY@0800 #90 tabs 10/31/18 metoprolol tartrate 25 mg tablet 12.5 mg (1/2 x 25 mg) PO BID #90 tabs 01/14/20 atorvastatin 80 mg tablet 80 mg PO QHS hld 01/11/23 clopidogrel 75 mg tablet 75 mg PO DAILY 01/11/23 lisinopril 20 mg-hydrochlorothiazide 12.5 mg tablet 1 tab PO DAILY 01/11/23 metformin 500 mg tablet 500 mg PO BID 01/11/23 pentoxifylline 400 mg tablet,extended release 400 mg PO Q8H improve circulation 01/11/23 terbinafine HCl 250 mg tablet 250 mg PO DAILY antifungal 01/13/23 Hospital Course Operations None Procedures Colonoscopy Summary of Care Provided Minutes Spent on Discharge: 35 Hospital Course: Per HPI: ELIZABETH ESPINOSA, is a 72 M with a significant history of CAD status post solitary stent in 4 to 5 years ago; and who had a colonoscopy on December 27, 2022 presents emergency department with multiple loose bloody stools. His symptoms started the day before presentation. And patient reports that so far he has had about 15 bloody stools up to the time of hospitalist examination at the ED. Also he reports what looks like blood clots in his stool. He denies any nausea, or vomiting. He denies any fever. He denies eating any food out of the ordinary. Patient reports lightheadedness with taking short stairs. Reportedly on December 27, 2022 he had a colonoscopy where about 20 polyps were resected and also he has some banding of some polyps. Reportedly pathology of polyps were negative. Emergency department doctor reports positive occult stools on rectal examination and nothing untoward otherwise. Hospital Course: 1. Acute blood loss anemia secondary to a lower GI bleed?72-year-old male presented to the hospital with multiple loose bloody stools about 10 to 14 days after he had a colonoscopy where 23 polyps were removed. He does take aspirin as well as Plavix so it was felt that this was likely a lower GI bleed. Gastroenterology was consulted and performed a colonoscopy that showed hepatic flexure ulcer that was treated. It did not appear that any of the sites for his polyps were bleeding. Hemoglobin did stabilize at around 8.7 on the day of discharge. I recommended that he hold his aspirin and his Plavix for another couple of days as its been 7 years since he had his stent placed. Since he was having a lower GI bleed, his Protonix was discontinued on discharge. I discussed with him the plan for discharge today he expressed understanding of the risks and benefits of going home and would like to go home today. 2. Coronary artery disease status post CABG and stent, hypertension, hyperlipid emia, type 2 diabetes are all chronic medical conditions which complicate his care. His home medications were continued where appropriate Physical Exam Narrative General: Alert, Oriented x3, Cooperative, No apparent distress HEENT: Atraumatic, PERRLA, EOMI, Normocephalic Oral: Moist Mucosa Neck: Supple, No JVD Lungs: Diminished, Normal air movement, No rhonchi, No wheeze, No rales Cardiovascular: Regular rate, Regular Rhythm, Normal S1, Normal S2, No murmurs Abdomen: Soft, Non Tender, Non-Distended, No Hepato-splenomegaly Extremities: No edema, Capillary Refill Less than 3 Seconds Skin: No rashes, No breakdown Musculoskeletal: No Tenderness to Palpation of Joints or Extremities Neurological: Cranial nerves II-XII grossly intact, Motor Exam 5/5 strength throughout, Sensory exam intact to light touch and pain Psych/Mental Status: Normal Affect, Appropriate Weight / BMI Weight Weight: 237 lb 10.533 oz Body Mass Index (BMI) 34.1 ABG / Lab / Microbiology Data 01/14/23 12:15 01/14/23 07:15 Laboratory: Laboratory Results - last 24 hr 01/13/23 15:58: POC Glucose 246 H 01/13/23 22:30: POC Glucose 157 H 01/14/23 05:26: POC Glucose 131 H 01/14/23 07:15: WBC 6.6, RBC 2.47 L, Hgb 8.0 L, Hct 24.9 L, MCV 100.8 H, MCH 32.4 H, MCHC 32.1, RDW Std Deviation 47.9 H, RDW Coeff of Gala 13.3, Plt Count 162, MPV 11.3, Immature Gran % (Auto) 0.500, Neut % (Auto) 66.9, Lymph % (Auto) 22.7, [place] % (Auto) 8.2, Eos % (Auto) 1.4, Baso % (Auto) 0.3, Absolute Neuts (auto) 4.4, Absolute Lymphs (auto) 1.50, Nucleated RBC % 0, Sodium 140, Potassium 3.9, Chloride 110 H, Carbon Dioxide 26.0, Anion Gap 4 L, BUN 12, Creatinine 0.79, Estim Creat Clear Calc 70.97, Est GFR (MDRD) Af Amer 124, Est GFR (MDRD) Non-Af 102, BUN/Creatinine Ratio 15.1, Glucose 133 H, Calcium 7.6 L 01/14/23 12:15: Hgb 8.7 L Microbiology: Microbiology 01/11/23 17:55 Stool Stool Lactoferrin - Final 01/11/23 17:55 Stool Enteric Bacteriology - Final D/C Instructions Discharge Diet: Low fat / Low cholesterol and Carb Control Diet Call your doctor if you observe: Fever of 101 or Higher, Shortness of breath, Dizziness, Fainting spells, Swelling in the ankles, Chest pain and Increased palpitations (irregular heartbeat) Meaningful Use Info Meaningful Use Diagnoses (Choose all that apply): None applicable Discharge Plan Admission Admit Date/Time: 01/11/23 20:15 Attending Provider: Otilio Paiz Primary Care Provider: Miracle Rooney,Mel Primary Consulting Providers: Friend,Hector; Lit Mosher Discharge Orders/Prescriptions Prescriptions: Continued atorvastatin 80 mg tablet 80 mg PO QHS Patient Comments: TAKE 1 TABLET BY MOUTH ONCE DAILY. FOR CHOLESTEROL. pentoxifylline 400 mg tablet extended release 400 mg PO Q8H Patient Comments: pt does not always take these. difficulty swallowing. Rx Instructions: TAKE 1 TABLET BY MOUTH THREE TIMES DAILY WITH MEALS lisinopril-hydrochlorothiazide 20-12.5 mg tablet 1 tab PO DAILY Rx Instructions: TAKE 1 TABLET BY MOUTH EVERY DAY IN THE MORNING metformin 500 mg tablet 500 mg PO BID Patient Comments: excessive supply of pills at home, so he hasn't needed refills Rx Instructions: TAKE 1 TABLET BY MOUTH TWICE A DAY WITH MEALS terbinafine HCl 250 mg tablet 250 mg PO DAILY Patient Comments: TAKE 1 TABLET BY MOUTH EVERY DAY metoprolol tartrate 25 mg tablet 12.5 mg PO BID Qty: 90 3RF Held aspirin 81 mg tablet,delayed release (DR/EC) 81 mg PO DAILY@0800 Qty: 90 3RF Hold Instructions: Resume on 01/18/23. clopidogrel 75 mg tablet 75 mg PO DAILY Hold Instructions: Resume on 01/18/23. Patient Comments: TAKE 1 TABLET BY MOUTH EVERY DAY Discontinued ticagrelor 90 mg tablet 90 mg PO BID Qty: 90 3RF Referrals / Follow Up: Care Physician,No Primary [Primary Care Provider] - Disposition Disposition (needs filled in before D/C Order can be placed): Home, Self Care Charges/Coding Visit Charges Inpatient E&M: 01671 Disch Hosp >30min
== END 2023-01-14 15:45 | disposition home or self-care (01) | DRG 394 ==
LOC: ED 19:38 → MS3 20:37
PROVIDERS: Anesthesiology; Internal Medicine Gastroenterology; Admitting Provider Hospitalist; Emergency Provider Emergency Medicine; Visit Provider Family Medicine
PROC: 0DJD8ZZ Inspection of Lower Intestinal Tract, Via Natural or Artificial Opening Endoscopic (ICD-10-PCS; CPT 45378; principal; 2023-01-13 06:55)
DX: K63.3 Ulcer of intestine (principal); D62 Acute posthemorrhagic anemia; K92.2 Gastrointestinal hemorrhage, unspecified; E11.9 Type 2 diabetes mellitus without complications; I10 Essential (primary) hypertension; K57.30 Diverticulosis of large intestine without perforation or abscess without bleeding; I25.10 Atherosclerotic heart disease of native coronary artery without angina pectoris; E78.5 Hyperlipidemia, unspecified; K63.5 Polyp of colon; I25.2 Old myocardial infarction; Z79.82 Long term (current) use of aspirin
CPT/HCPCS: 36415; 80048; 80053; 82962; 83036; 83630; 85014; 85018; 85025; 87177; 87209; 87506; 93005; 99285; 99406; J7030; A4216; J2405

== ENCOUNTER 2023-12-10 02:25 | Emergency (ER) | payer MEDICARE, SELFPAY ==
[2018-10-16 08:37] VITALS: BMI 36.8
[2023-12-10 02:27] VITALS: PULSE 71; RESP 18; TEMP 36.5; O2SAT 94; BMI 33.6
[2023-12-10 02:28] VITALS: BP 168/75; PULSE 71; RESP 16; TEMP 36.5; O2SAT 96
--- NOTE | 2023-12-10 02:31 | EX.ED.DYSGE1 ---
HPI History of Present Illness Chief Complaint: Complaint [facility] Medical History (Updated 12/10/23 @ 04:[address] Eliud Reeves DO) Essential hypertension Type 2 diabetes mellitus without complication Atherosclerosis of coronary artery of [place] heart without angina pectoris HLD (hyperlipidemia) STEMI (ST elevation myocardial infarction) Home Medications ?Medication ?Instructions ?Recorded ?Last Taken ?Type aspirin 81 mg tablet,delayed 81 mg PO DAILY@0800 #90 tabs 10/31/18 01/11/23 Rx release metoprolol tartrate 25 mg tablet 12.5 mg (1/2 x 25 mg) PO BID #90 01/14/20 01/11/23 Rx tabs atorvastatin 80 mg tablet 80 mg PO QHS hld 01/11/23 01/10/23 History clopidogrel 75 mg tablet 75 mg PO DAILY 01/11/23 01/11/23 History lisinopril 20 1 tab PO DAILY 01/11/23 01/11/23 History mg-hydrochlorothiazide 12.5 mg tablet pentoxifylline 400 mg 400 mg PO Q8H improve circulation 01/11/23 01/11/23 History tablet,extended release metformin 1,000 mg tablet 1,000 mg PO BID 12/10/23 Unknown History ondansetron 4 mg disintegrating 4 mg PO Q8H PRN PRN Nausea #10 tabs 12/10/23 Unknown Rx tablet oxycodone 5 mg tablet 5 mg PO Q6H PRN pain 3 days #12 12/10/23 Unknown Rx tabs tamsulosin 0.4 mg capsule (Flomax) 0.4 mg PO DAILY #7 caps 12/10/23 Unknown Rx Allergy/AdvReac Type Severity Reaction Status Date / Time No Known Allergies Allergy Verified 12/10/23 02:29 Surgical History Presence of stent in coronary artery Status post coronary artery bypass graft Social History household members: spouse Smoking Status: Current every day smoker tobacco type: cigarettes and pipe how long ago did patient quit smokin weeks ago quit cigarettes. Still smoking a pipe alcohol intake: never substance use type: does not use caffeine: Yes Type: coffee Number of servings: 1 EXAM Physical Exam Const Vital Signs: 12/10/23 02:27 12/10/23 02:28 12/10/23 03:28 Temperature 97.7 F L 97.7 F L 97.5 F L Temperature Source Oral Oral Oral Pulse Rate 71 71 65 Respiratory Rate 18 16 18 Blood Pressure 168/75 H 163/68 H Blood Pressure Mean 106 99 Pulse Ox 94 96 96 Oxygen Delivery Method Room Air Room Air Room Air 12/10/23 04:00 12/10/23 04:29 Temperature 97.5 F L 97.5 F L Temperature Source Oral Pulse Rate 65 65 Respiratory Rate 18 18 Blood Pressure 163/68 H 163/68 H Blood Pressure Mean 99 99 Pulse Ox 96 96 Oxygen Delivery Method Room Air [facility] Narrative Medical decision making narrative: HISTORY OF PRESENT ILLNESS: 73-year-old male history of hyperlipidemia, STEMI, status post CABG, type 2 diabetes presents per triage note with burning with urination, right flank pain and increased urinary frequency. REVIEW OF SYSTEMS: Pertinent positives: Right flank pain, dysuria Pertinent negatives: vomiting PHYSICAL EXAM: Nursing triage notes reviewed, Vital signs reviewed Constitutional: please see mdm HENT: MMM Eyes: Pupils equal round and reactive to light, Extraocular muscles intact Neck: No stridor, no JVD, full neck ROM Lungs: Clear to auscultation, No wheezing or rales. No increased work of breathing, no conversational dyspnea, no accessory muscle use, no nasal flaring. No respiratory distress noted Heart: Regular rate and rhythm, No murmurs, No rubs and No gallops, 2+ distal pulses (radial, femoral, posterior tibial) in all extremities Abdomen: Soft, there is no tenderness, rigidity, rebound or guarding, no obvious peritoneal signs, no palpable pulsatile abdominal masses, no auscultated abdominal bruit : No CVAT Extremities: No edema Neuro: No focal neurological deficits, cranial nerves II through XII intact, 5/5 strength in all extremities. Intact sensation to light touch in all extremities, 2+ reflexes bilateral patella tendons. Normal gait. No ataxia. Skin: No rash or lesions noted MEDICAL DECISION MAKING: Chief Complaint: Right flank pain, dysuria External records reviewed: Prior imaging reviewed: No recent [place] imaging the abdomen or pelvis. Prior medications reviewed Factors affecting care: As per HPI MDM Narrative: The patient was initially hemodynamically stable, afebrile, nontoxic appearing. Exam without CVA tenderness. I considered the following differential diagnosis: UTI, pyelonephritis, nephrolithiasis, AAA I obtained a broad lab and imaging workup to further elucidate etiology of patient complaints ALL IMAGES (IF OBTAINED) HAVE BEEN PERSONALLY REVIEWED AND INTERPRETED BY MYSELF. CT scan abdomen pelvis was read reviewed myself shows evidence of hydronephrosis and a large nephrolithiasis at the UVJ. Awaiting the radiologist read. CBC with leukocytosis suggestive of systemic inflammation, no anemia or thrombocytopenia noted BMP with out electrolyte abnormalities, noted acute kidney injury, no evidence of metabolic acidosis or endorgan hypoperfusion Urinalysis shows no evidence of urinary inflammation suggestive of UTI After a long shared decision-making discussion in which I offered the patient transfer for immediate urology evaluation versus discharge with Zofran oxycodone Flomax and prompt outpatient urology evaluation patient chose to be discharged to follow-up with urology as an outpatient. He stated he did not want to go to the other facility to with a urologist see him tonight. Encourage increase p.o. intake. Prescribed Flomax, oxycodone and Zofran for symptomatic relief. Strict return precautions were discussed. The patient and/or family, caregivers express understanding. The patient and/or family, caregivers agrees with the plan. Shared decision making: I will have a discussion with the patient and or visitors regarding risk/benefits of further testing or admission. They will be made aware of of the risk/benefits inherent in this decision they will be given the opportunity to voice understanding. Total critical care time today provided was at least 0 minutes. This excludes separately billable procedures. Critical care time (if documented) is secondary to the patient having high probability of clinically significant/life threatening deterioration in the patient's condition which required my urgent intervention. Impression: 1. Leukocytosis 2. DEMI 3. Nephrolithiasis Dispo: Discharge home This note was generated with [employer] dictation software. It may contain incorrect words, spelling, and punctuation that were not noted in review of the chart prior to signing. Lab Data Labs: Laboratory Results - last 24 hr 12/10/23 12/10/23 02:38 03:38 WBC 15.5 H RBC 5.09 Hgb 16.2 Hct 48.6 MCV 95.5 H MCH 31.8 MCHC 33.3 RDW Std Deviation 47.4 H RDW Coeff of Gala 13.4 Plt Count 239 MPV 11.5 Immature Gran % (Auto) 0.500 Neut % (Auto) 79.6 H Lymph % (Auto) 11.2 L [place] % (Auto) 7.9 Eos % (Auto) 0.2 Baso % (Auto) 0.6 Absolute Neuts (auto) 12.3 H Absolute Lymphs (auto) 1.73 Nucleated RBC % 0 Sodium 136 Potassium 4.4 Chloride 105 Carbon Dioxide 22.0 Anion Gap 9 BUN 30 H Creatinine 1.86 H Estim Creat Clear Calc 44.50 Est GFR (MDRD) Af Amer 46 L Est GFR (MDRD) Non-Af 38 L BUN/Creatinine Ratio 16.1 Glucose 127 H Calcium 9.6 Total Bilirubin 0.60 AST 20 ALT 31 Alkaline Phosphatase 56 Total Protein 7.9 Albumin 3.6 Globulin 4.3 H Albumin/Globulin Ratio 0.8 L Urine Color Yellow Urine Clarity Clear Urine pH 5.0 Ur Specific [place] 1.020 Urine Protein 30 H Urine Glucose (UA) Normal Urine Ketones Negative Urine Occult Blood 250 H Urine Nitrite Negative Urine Bilirubin Negative Urine Urobilinogen Normal Ur Leukocyte Esterase Negative Urine RBC 5-10 SEEN Urine WBC 0 SEEN Ur Squamous Epith Cells 0-5 SEEN Urine Bacteria 0 SEEN Urine Mucus 0 SEEN Discharge Plan Triage Chief Complaint: Complaint ED Provider: Eliud Reeves Dx/Rx/DC Orders Clinical Impression: Nephrolithiasis Instructions: Preventing Kidney Stones, ED Kidney Stone with Pain Prescriptions: New tamsulosin [Flomax] 0.4 mg capsule 0.4 mg PO DAILY Qty: 7 0RF ondansetron 4 mg tablet,disintegrating 4 mg PO Q8H PRN PRN (Reason: Nausea) Qty: 10 0RF oxycodone 5 mg tablet 5 mg PO Q6H PRN (Reason: pain) 3 Days Qty: 12 0RF No Action aspirin 81 mg tablet,delayed release (DR/EC) 81 mg PO DAILY@0800 Qty: 90 3RF atorvastatin 80 mg tablet 80 mg PO QHS Patient Comments: TAKE 1 TABLET BY MOUTH ONCE DAILY. FOR CHOLESTEROL. clopidogrel 75 mg tablet 75 mg PO DAILY Patient Comments: TAKE 1 TABLET BY MOUTH EVERY DAY pentoxifylline 400 mg tablet extended release 400 mg PO Q8H Patient Comments: pt does not always take these. difficulty swallowing. Rx Instructions: TAKE 1 TABLET BY MOUTH THREE TIMES DAILY WITH MEALS lisinopril-hydrochlorothiazide 20-12.5 mg tablet 1 tab PO DAILY Rx Instructions: TAKE 1 TABLET BY MOUTH EVERY DAY IN THE MORNING metformin 1,000 mg tablet 1,000 mg PO BID metoprolol tartrate 25 mg tablet 12.5 mg PO BID Qty: 90 3RF Primary Care Provider: Kevin Washington Referrals: Reece Gaines MD [Med Staff - Active Staff] - Activity Restrictions/Additional Instructions: Thank you for trusting us with your care today! You were diagnosed with a large kidney stone. Kidney stones less than 5 mm to 8 mm typically pass on their own. Your kidney stone was 10 mm Please take Tylenol (2 pills, 650 mg), ibuprofen (2 pills, 400 mg) every 6 hours as needed for pain and fever control. Please take oxycodone as needed for breakthrough pain at the above regimen does not control your pain. Please take Zofran as needed for nausea and vomiting. You are also prescribed a medication called Flomax which is thought to improve passage of the kidney stone please take this as well for neck 7 days Please return to the emergency department if your symptoms change or worsen. Specifically develop severe pain that is not controlled by the above regimen, you develop vomiting that controlled by Zofran, develop fever chills or feel ill. Please follow with Urology (Dr. Gaines) for further outpatient evaluation and management. Print Language: Norwegian Disposition Disposition: Home, Self Care
--- NOTE | 2023-12-10 02:32 | CT_ITS ---
INDICATION: RT FLANK PAIN EXAMINATION: CT ABDOMEN AND PELVIS WITHOUT CONTRAST - CT Abdomen And Pelvis W/O Contrast Injection TECHNIQUE: Helically acquired images were obtained of the abdomen and pelvis without oral or IV contrast. A radiation dose optimization technique was used for this scan. IV Contrast dosage and agent: None. Oral contrast: None. RADIATION DOSAGE (If Supplied By Facility): CTDIvol = ( 18.56 ) mGy, DLP = ( 1043.40 ) mGycm COMPARISON: No relevant prior comparison study available FINDINGS: LOWER CHEST: Lung bases are clear. No cardiomegaly or pericardial effusion. Coronary artery calcifications are seen. LIVER: The liver is normal in size, shape, and attenuation. No focal mass. GALLBLADDER AND BILIARY TREE: The gallbladder is normally distended. No gallstones. No gallbladder wall thickening or edema. No intra- or extrahepatic biliary ductal dilation. PANCREAS: No focal cystic or solid mass. SPLEEN: Normal size without focal cystic or solid mass. ADRENAL GLANDS: Bilateral thickening of the adrenal glands. There is a left lipid rich adenoma measuring 2.2 cm. KIDNEYS AND URETERS: Normal renal size and position. Simple left renal cyst. No specific follow-up recommended. Mild right hydroureteronephrosis. There is a 1 cm calculus at the right ureterovesicular junction. This measures 1113 Hounsfield units. At least 3 additional right-sided calculi. The largest is seen at the lower pole measuring 0.7 cm, 14 cm from the posterior axillary line. At least 3 left renal calculi. The largest is at the upper pole measuring 1 cm, 12 cm from the posterior axillary line. PERITONEUM: No ascites or free air. No other fluid collection. BOWEL: The stomach is unremarkable. Normal caliber small bowel. No obstruction. No colonic wall thickening or inflammatory changes. Colonic diverticulosis noted without diverticulitis. No evidence of acute appendicitis. LYMPH NODES: No enlarged mesenteric or retroperitoneal lymph nodes. VESSELS: Aorta is non-dilated. Moderate atherosclerotic calcifications. URINARY BLADDER: Partially distended with mild circumferential wall thickening. REPRODUCTIVE ORGANS: No pelvic masses. ABDOMINAL WALL: No discrete abdominal or pelvic wall hernia. BONES: No acute or suspicious osseous abnormality. Mild degenerative changes of the spine. CT/Abdomen/Pelvis without Cont IMPRESSION: Mild right hydroureteronephrosis with a 1 cm calculus at the right ureterovesicular junction. Additional bilateral nonobstructing renal calculi. Lipid rich left adrenal adenoma. No specific follow-up recommended. Electronically Signed: Jake Shea MD at 3:58 EDT ,
[2023-12-10] MEDS: 0.9% Normal Saline (1000mL) 1,000 ML 999 ML IV (02:37)
[2023-12-10] MEDS: Ketorolac 15 MG/ML Vial IV (02:38)
[2023-12-10 02:56] LABS: Absolute Lymphocyte Count 1.73 X10^3/uL (0.83-4.51); Absolute Neutrophil Count 12.3 X10^3/uL (2.0-7.7); Basophil% 0.6 % (0-1); Eosinophil# 0.03 X10^3/uL; Eosinophils% 0.2 % (0-5); Hematocrit 48.6 % (40-54); Hemoglobin 16.2 g/dL (13.0-16.5); Lymphocyte # 1.73 X10^3/ul (0.83-4.51); Lymphocyte % 11.2 % (19-41); Mean Corp Hgb Conc 33.3 g/dL (32-36); Mean Corpuscular Hgb 31.8 pg (27.0-32.0); Mean Corpuscular Volume 95.5 fL (80-94); Mean Platelet Vol. 11.5 fl (6.2-12.0); Monocyte# 1.22 X10^3/uL; Monocyte% 7.9 % (0-10); NRBC Flagged by Analyzer 0 % (0-5); Neutrophil # 12.29 X10^3/uL (2.7-7.7); Neutrophil % 79.6 % (47-70); Platelet Count 239 K/mm3 (150-450); RBC Distribution Width CV 13.4 % (11.6-14.6); RBC Distribution Width SD 47.4 fl (35.1-43.9); Red Blood Count 5.09 M/mm3 (4.6-6.2); White Blood Count 15.5 K/mm3 (4.4-11.0)
[2023-12-10 03:13] LABS: ALB/GLOB Ratio 0.8 RATIO (0.9-2.4); AST(SGOT) 20 U/L (15-37); Alanine Aminotransfer ALT/SGPT 31 U/L (16-61); Albumin, Serum 3.6 g/dL (3.2-5.0); Alkaline Phosphatase 56 U/L (45-117); Anion Gap 9 (5-15); BUN 30 mg/dL (7-18); BUN/Creat Ratio 16.1 RATIO (10-20); Calcium,Total 9.6 mg/dL (8.5-10.1); Chloride 105 mmol/L (98-107); Creatinine, Serum 1.86 mg/dL (0.70-1.30); EST Glomerular Filtration Rate 38 mL/min (>60); Est Glom Filt Rate - Afr Amer 46 mL/min (>60); Globulin 4.3 g/dL (2.2-4.2); Glucose 127 mg/dL (74-106); Potassium 4.4 mmol/L (3.5-5.1); Protein, Total 7.9 g/dL (6.4-8.2); Sodium Level 136 mmol/L (136-145)
[2023-12-10 03:28] VITALS: BP 163/68; PULSE 65; RESP 18; TEMP 36.4; O2SAT 96
[2023-12-10 03:41] LABS: Bacteria 0 SEEN /hpf (None Seen); Mucous, Urine 0 SEEN /hpf (<or=2+)
[2023-12-10 04:00] VITALS: BP 163/68; PULSE 65; RESP 18; TEMP 36.4; O2SAT 96
[2023-12-10 04:01] LABS: Color, Urine Yellow (Yellow); Glucose, Dipstick Normal (Normal); Ketone-Dipstick Negative (Negative); Leukocyte Esterase-Dipstick Negative /ul (Negative); Nitrite-Dipstick Negative (Negative); Occult Blood-Urine 250 /ul (Negative); Protein-Dipstick 30 mg/dl (Negative); Urine Bilirubin Dipstick Negative (Negative); Urine Clarity Clear (Clear); Urine Urobilinogen Normal (Normal)
[2023-12-10 04:10] LABS: Red Blood Cells-Urine 5-10 SEEN /hpf (0-5); Squamous Epithelial Cells - UA 0-5 SEEN /hpf (0-5); White Blood Cells 0 SEEN /hpf (0-5)
[2023-12-10 04:29] VITALS: BP 163/68; PULSE 65; RESP 18; TEMP 36.4; O2SAT 96
== END 2023-12-10 04:47 | disposition home or self-care (01) ==
PROVIDERS: Emergency Provider Emergency Medicine; PCP Family Medicine; Visit Provider Emergency Medicine
DX: N13.2 Hydronephrosis with renal and ureteral calculous obstruction (principal); E11.9 Type 2 diabetes mellitus without complications; N17.9 Acute kidney failure, unspecified; E78.5 Hyperlipidemia, unspecified; D72.829 Elevated white blood cell count, unspecified; I25.10 Atherosclerotic heart disease of native coronary artery without angina pectoris; I10 Essential (primary) hypertension; I25.2 Old myocardial infarction; F17.290 Nicotine dependence, other tobacco product, uncomplicated; Z79.02 Long term (current) use of antithrombotics/antiplatelets; Z79.82 Long term (current) use of aspirin; Z79.84 Long term (current) use of oral hypoglycemic drugs; Z79.899 Other long term (current) drug therapy; Z95.1 Presence of aortocoronary bypass graft; Z95.5 Presence of coronary angioplasty implant and graft
CPT/HCPCS: 74176; 80053; 81001; 85025; 96361; 96374; 99282; A4216